=== PATIENT | male | born 1955 | race Caucasian/White ===

== ENCOUNTER 2019-10-30 10:16 | Outpatient (CLI) | payer BC, SELFPAY ==
[2019-10-30 17:42] LABS: Blood Urea Nitrogen 27 mg/dL (9-20); Calcium 8.8 mg/dL (8.4-10.2); Carbon Dioxide 23 mmol/L (22-30); Chloride 103 mmol/L (98-107); Cholesterol 209 mg/dL (0-200); Estimated Glomerular Filt Rate > 60; Glucose 171 mg/dL (75-110); HDL Direct 36 mg/dL; Potassium 3.9 mmol/L (3.4-5.0); Sodium 139 mmol/L (137-145); Triglycerides 201 mg/dL (<150)
[2019-10-30 17:53] LABS: LDL Cholesterol Direct 152 mg/dL
[2019-11-02 12:01] LABS: FSH 8.6 mIU/mL (1.6-8.0); LH 4.7 mIU/mL (1.6-15.2); Prolactin 5.2 ng/mL (***)
[2019-11-02 23:42] LABS: Sex Hormone Binding Globulin 18 nmol/L (22-77)
[2019-11-04 17:16] LABS: Estradiol, Ultrasensitive 28 pg/mL (< OR = 29)
[2019-11-04 18:15] LABS: Testosterone Free 37.7 pg/mL (35.0-155.0); Testosterone Total 230 ng/dL (250-1100)
== END 2019-10-30 10:17 | disposition home or self-care (01) ==
PROVIDERS: PCP Family Medicine
DX: E11.65 Type 2 diabetes mellitus with hyperglycemia (principal); Z79.4 Long term (current) use of insulin; N52.9 Male erectile dysfunction, unspecified; Z79.899 Other long term (current) drug therapy
CPT/HCPCS: 36415; 80048; 80061; 82670; 83001; 83002; 84146; 84270; 84402; 84403

== ENCOUNTER 2019-11-08 15:04 | Outpatient (CLI) | payer BC, SELFPAY ==
[2019-11-08 17:42] LABS: Blood Urea Nitrogen 18 mg/dL (9-20); Calcium 9.4 mg/dL (8.4-10.2); Carbon Dioxide 26 mmol/L (22-30); Chloride 100 mmol/L (98-107); Estimated Glomerular Filt Rate > 60; Glucose 133 mg/dL (75-110); Potassium 3.5 mmol/L (3.4-5.0); Sodium 141 mmol/L (137-145)
[2019-11-08 18:13] LABS: Prostate Specific Antigen 1.1 ng/mL (< OR = 4.0)
[2019-11-11 07:22] LABS: C-Peptide 7.44 ng/mL (0.80-3.85)
[2019-11-12 14:25] LABS: Testosterone Free 150.5 pg/mL (35.0-155.0); Testosterone Total 675 ng/dL (250-1100)
== END 2019-11-08 15:05 | disposition home or self-care (01) ==
LOC: ANHBWCLAB 15:06
PROVIDERS: PCP Family Medicine; Visit Provider Family Medicine
DX: Z12.5 Encounter for screening for malignant neoplasm of prostate (principal); R89.9 Unspecified abnormal finding in specimens from other organs, systems and tissues; N52.9 Male erectile dysfunction, unspecified; I10 Essential (primary) hypertension; E78.5 Hyperlipidemia, unspecified; R79.89 Other specified abnormal findings of blood chemistry; Z79.899 Other long term (current) drug therapy; E11.9 Type 2 diabetes mellitus without complications
CPT/HCPCS: 36415; 80048; 84153; 84402; 84403; 84681; G0103

== ENCOUNTER 2019-12-23 19:06 | IRF | payer BC, SELFPAY ==
[2019-12-23 20:11] VITALS: BMI 36.8
[2019-12-23 21:22] LABS: Glucose Point of Care 201 (65-105)
--- NOTE | 2019-12-23 21:28 | ADMGEN ---
This patient, Dilip Thornton, was admitted to [facility] Room 221-02. Patient oriented to hospital policies and general routines including ID bracelet, bed and alarms, visiting hours, pain management, procedures, bathroom and other care routines, personal items, smoking policy, room service/diet, and visiting hours. Valuables list has been completed. Information on how to activate the Rapid Response Team has been discussed. Patient/Family are encouraged to report perceived risks to care and to ask questions if they do not understand what they are told or what they should do.
[2019-12-23 22:00] VITALS: BP 157/73; PULSE 72; RESP 16; TEMP 36.6; O2SAT 95
[2019-12-24 05:23] LABS: Basophils Absolute Auto 0.1 K/mm3 (0.0-0.1); Basophils Percent Auto 0.5 % (0.2-1.2); Eosinophils Absolute Auto 0.3 K/mm3 (0-0.3); Eosinophils Percent Auto 2.9 % (0-4.4); Hematocrit 46.6 % (42.0-52.0); Hemoglobin 15.3 g/dL (14.0-18.0); Immature Granulocyte Absolute 0.03 K/mm3 (0.00-0.031); Immature Granulocyte Percent A 0.3 % (0-0.5); Lymphocytes Absolute Auto 2.21 K/mm3 (0.9-3.2); Lymphocytes Percent Auto 20.8 % (18.3-44.2); Mean Corpuscular HGB Conc 32.8 g/dl (32-36); Mean Corpuscular Volume 88.4 fl (80-100); Mean Platelet Volume 10.3 fl (7.4-10.4); Monocytes Absolute Auto 0.6 K/mm3 (0.1-0.6); Monocytes Percent Auto 5.8 % (2.6-8.5); Neutrophils Absolute Auto 7.4 K/mm3 (1.3-6.7); Neutrophils Percent Auto 69.7 % (45.5-73.1); Platelet Count Result 227 k/mm3 (150-375); Red Blood Count 5.27 M/mm3 (4.6-6.20); Red Cell Distribution Width 13.5 % (11.5-14.5); White Blood Count 10.6 K/mm3 (4.5-10.0)
[2019-12-24 05:31] LABS: Hemoglobin A1C 7.3 % (<5.7)
[2019-12-24 06:00] VITALS: BP 135/72; PULSE 75; RESP 16; TEMP 36.7; O2SAT 99
[2019-12-24 06:58] LABS: Blood Urea Nitrogen 19 mg/dL (9-20); Calcium 9.3 mg/dL (8.4-10.2); Carbon Dioxide 26 mmol/L (22-30); Chloride 105 mmol/L (98-107); Cholesterol 142 mg/dL (0-200); Estimated CRCL calculation 119 ml/min; Estimated Glomerular Filt Rate > 60; Glucose 223 mg/dL (75-110); HDL Direct 30 mg/dL; Potassium 3.8 mmol/L (3.4-5.0); Sodium 137 mmol/L (137-145); Triglycerides 151 mg/dL (<150)
[2019-12-24 07:08] LABS: LDL Cholesterol Direct 83 mg/dL
--- NOTE | 2019-12-24 09:30 | WPDREHABHP ---
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 The patient is a 64-year- old left-handed patient with a past medical history of gastroesophageal reflux disease, hypertension, hyperlipidemia, type 2 diabetes mellitus and untreated sleep apnea presented to [facility] on December 19, 2019 complaining of unsteady gait, right arm and leg tingling and diaphoresis. He woke up at around 4:30 a.m. and was unable to walk straight in the car door of his home and reported difficulty speaking complete sentences. Neurology was consulted and continue the patient on his previously prescribed atorvastatin and initially increase aspirin from 81 to 325 milligram daily but later decided to decrease aspirin back to 81 and added Plavix [address] of the brain showed no acute intracranial process. Carotid ultrasound showed no high-grade stenosis. Echo was unremarkable. MRI of the brain demonstrated an acute left pontine infarction present is hypertensive urgency has resolved and he is on oral antihypertensive medication. Patient is on 2 liter nasal cannula at night for obstructive sleep apnea as he is unable to tolerate CPAP mask due to claustrophobia. Physical examination continues to reveal right-sided weakness balance impairment and decreased gross motor control and decrease safety awareness. He passed his swallowing study and is on a regular consistency diet and thin liquids The patient has not traveled outside the [place] or had contact with someone who was ill and has traveled outside the [place] in the past 21 days. The patient has not had close personal contact with the person or traveled to an area of the [place] that is experiencing no new transmission of the levi virus. The patient does not have a fever. The patient does not have lower extra respiratory illness symptoms. Therapy was initiated at the acute care facility and the patient transferred to us from [facility] on December 23, 2019 FALLS OR SURGERIES: The patient has had no major surgeries in the 100 days prior to admission. They had no falls in the past year. They had no falls with injury in the past year. PAST MEDICAL HISTORY: diabetes mellitus, maximum, gastroesophageal reflux disease, Brandon dental disease, hyperlipidemia, hypertension, lipoma, ulnar entrapment right upper extremity. PAST SURGICAL HISTORY: Appendectomy, carpal tunnel release twice, knee arthroscopy, lipoma excision, alert release, tonsillectomy, hernia repair. SOCIAL HISTORY: The patient lives independently in a 1 level home with 2 steps to enter. The patient was completely independent prior without any assistive device. The patient was able to drive. He does not have support at home so he needs to be independent. He reported no falls in the past 6 months. He reported no surgeries. Former smoker no alcohol drug use FAMILY HISTORY: mother with hypertension and thyroid disease. Father with coronary disease and hypertension. Brother with a fatty tumor sister with coronary disease and thyroid disease PRIOR LEVEL OF FUNCTION: Eating was INDEPENDENT Oral Care was INDEPENDENT Toileting Hygiene was INDEPENDENT Shower/Bathing was INDEPENDENT Upper Body Dressing was INDEPENDENT Lower Body Dressing was INDEPENDENT Donning/[place] Footwear was INDEPENDENT Rolling Left and Right was INDEPENDENT Sit to Lying was INDEPENDENT Lying to Sitting was INDEPENDENT Sit to Stand was INDEPENDENT Bed to Chair Transfers was INDEPENDENT Toilet Transfers was INDEPENDENT Walking was INDEPENDENT 999 feet with NO DEVICE Wheelchair Mobility was NOT APPLICABLE PRIOR TO ADMISSION Stairs were INDEPENDENT CURRENT LEVEL OF FUNCTION:
[2019-12-24] MEDS: INSULIN HUMAN NPH (*BKC) 100 UNITS/ML 10 UNITS SUB-Q ×2 (10:54→18:37)
[2019-12-24] MEDS: AMLODIPINE BESYLATE 5 MG TABLET 10 MG PO (10:54)
[2019-12-24] MEDS: ASPIRIN 81 MG ENTERIC TABLET PO (10:54)
[2019-12-24] MEDS: ATORVASTATIN 40 MG TABLET PO (10:55)
[2019-12-24] MEDS: CHOLECALCIFEROL 1,000 UNIT TABLET 2000 UNITS PO (10:55)
[2019-12-24] MEDS: GABAPENTIN 300 MG CAPSULE PO (10:55)
[2019-12-24] MEDS: CLOPIDOGREL BISULFATE 75 MG TABLET PO (10:55)
[2019-12-24 10:56] VITALS: PULSE 72
[2019-12-24] MEDS: GLIMEPIRIDE 2 MG TABLET 4 MG PO (10:56)
[2019-12-24] MEDS: METOPROLOL SUCCINATE EXT REL 50 MG TABCR PO (10:56)
[2019-12-24] MEDS: hydroCHLOROthiazide 25 MG TABLET PO (10:56)
[2019-12-24] MEDS: LOSARTAN POTASSIUM 100 MG TABLET PO (10:56)
[2019-12-24] MEDS: OPTI-GEN TAB 1 TABLET PO (10:57)
[2019-12-24 11:57] LABS: Glucose Point of Care 214 (65-105)
--- NOTE | 2019-12-24 12:23 | PCSTNOTE ---
Please refer to the Bedside Swallow Evaluation in the EMR. Please note, silent aspiration cannot be ruled out at bedside.
[2019-12-24 14:00] VITALS: BP 163/81; PULSE 88; RESP 20; TEMP 37.1; O2SAT 98
[2019-12-24 14:04] VITALS: BMI 36.8
[2019-12-24 17:37] LABS: Glucose Point of Care 252 (65-105)
[2019-12-24 20:30] VITALS: PULSE 79; RESP 18; O2SAT 95
[2019-12-24 20:53] LABS: Glucose Point of Care 248 (65-105)
[2019-12-24 22:00] VITALS: BP 155/74; PULSE 79; RESP 18; TEMP 36.8; O2SAT 95
[2019-12-25 06:00] VITALS: BP 160/80; PULSE 68; RESP 18; TEMP 36.7; O2SAT 97
[2019-12-25 07:06] LABS: Glucose Point of Care 217 (65-105)
[2019-12-25] MEDS: ASPIRIN 81 MG ENTERIC TABLET PO (09:23)
[2019-12-25] MEDS: AMLODIPINE BESYLATE 5 MG TABLET 10 MG PO (09:23)
[2019-12-25] MEDS: CHOLECALCIFEROL 1,000 UNIT TABLET 2000 UNITS PO (09:24)
[2019-12-25] MEDS: ATORVASTATIN 40 MG TABLET PO (09:24)
[2019-12-25] MEDS: CLOPIDOGREL BISULFATE 75 MG TABLET PO (09:24)
[2019-12-25] MEDS: GLIMEPIRIDE 2 MG TABLET 4 MG PO (09:25)
[2019-12-25] MEDS: GABAPENTIN 300 MG CAPSULE PO (09:25)
[2019-12-25] MEDS: hydroCHLOROthiazide 25 MG TABLET PO (09:25)
[2019-12-25 09:26] VITALS: PULSE 68
[2019-12-25] MEDS: OPTI-GEN TAB 1 TABLET PO (09:26)
[2019-12-25] MEDS: METOPROLOL SUCCINATE EXT REL 50 MG TABCR PO (09:26)
[2019-12-25] MEDS: LOSARTAN POTASSIUM 100 MG TABLET PO (09:26)
[2019-12-25] MEDS: INSULIN HUMAN NPH (*BKC) 100 UNITS/ML 10 UNITS SUB-Q ×2 (09:29→18:09)
[2019-12-25 11:59] LABS: Glucose Point of Care 279 (65-105)
--- NOTE | 2019-12-25 13:26 | RPD ---
Addendum entered by Diana Eden 12/25/19 13:36: The patient needs physician monitoring and treatment of hypertension, hypoxia, monitoring for adverse reactions to new medications, monitoring for infection, and pain control. The patient requires nursing services for frequent neuro checks, anticoagulation therapy, medication management and education, pressure relief and skin care management, monitoring of labs, diabetes management and education, and fall/safety precautions. Original Note: INDIVIDUALIZED PLAN OF CARE FOR Carmen Thornton Brief Synthesis of Pre-Admission Screen, Post-Admission Evaluation and Therapy Evaluations: The patient presents to rehab with a left pontine acute infarct. Comorbidities include hypertension, hyperlipidemia, diabetes mellitus type 2 with neuropathy, untreated sleep apnea, aphasia, rightsided weakness with gait instability, and gastroesophageal reflux disease. Deficits include:ADLs, Balance, Endurance, Family Training/Education, Mobility, Pain Management, ROM, Safety, Speech, Strength, and Transfers. [employer]enet Admin/Case Management for: Discharge Planning and Patient/Family Counseling Physical Therapy: 5 days per week for 75 minutes. Treatments may include: Therapeutic Exercise, Gait Training, Neuromuscular Re-education, Transfer Training, Community Reintegration, Bed Mobility, Patient/Family Education, Wheelchair Mobility Group Therapy/Concurrent Therapy Rationales: -Improve attention span during functional activities in a distracted environment. -Enhance problem solving and/or adequate judgment skills during functional activities in a distracted environment. -Promote increased safety awareness in a distracted environment to reduce fall risk with functional tasks, transfers, and ambulation to allow a more safe, self-sufficient return to the home environment. -Improve dynamic balance skills to promote safety and independence with functional activities in a distracted environment for maximum gain. Occupational Therapy: 5 days per week for 75 minutes. Treatments may include: Therapeutic Exercise, Therapeutic Activity, Cognitive Training, Self-Care Transfer Training, Community Reintegration, Home Management, Patient/Family Education, Wheelchair Mobility Training, Energy Conservation Training Group Therapy/Concurrent Therapy Rationales: -Allow therapist to observe and teach generalization and carry-over of skills learned in individual therapy. -Enhance problem solving and sequencing skills during therapeutic activities in a distracted environment. -Promote increased safety awareness in a realistic setting to reduce fall risk with functional tasks due to visual and verbal distractions. -Increase functional level with ADLs, ADL transfers and use of adaptive equipment through therapeutic activities with others while promoting safety to allow a more safe, self-sufficient return home. Speech Therapy: 5 days per week for 30 minutes. Treatments may include: Dysphasia Therapy, Speech/Language/Communication Therapy, Cognitive Training, Patient/Family Education Group Therapy/Concurrent Therapy - Rationale: -Allow therapist to observe and teach generalization and carry-over of skills learned in individual therapy. -Improve comprehension skills with complex or abstract ideas through discussion in a realistic setting. -Enhance problem solving skills with complex issues during activities in a distracted environment. -Promote increased memory skills and concentration in a distracted environment for a safe transition home. -Improve attention and focus with language/communication skills in a realistic and supportive therapeutic setting. -Allow for practice of expression of basic needs and ideas through functional activities with others. Medical Prognosis: Good Anticipated Length of Stay: 10 days Rehab Goals: Eating Goal: 05-Setup or Clean Up Assistance Oral Hygiene Goal: 06-Independent Toileting Hygiene Goal: 04-Supervision or Bill
[2019-12-25 14:00] VITALS: BP 136/68; PULSE 74; RESP 20; TEMP 36.2; O2SAT 97
--- NOTE | 2019-12-25 14:26 | WPDNEURORHBP ---
Subjective Date/time seen: 12/25/19 14:26 Interval history: this 64-year-old gentleman is here with the left pontine stroke with significant moderately severe right-sided hemiparesis with the right arm is almost flaccid and the right leg is relatively better he needs assistance in all the activities of daily living but quite motivated and moving forward without any new neurological symptoms without any headache nausea vomiting double vision blurred vision or new weakness no chest pain no shortness of breath abdominal pain Review of Systems Review of Systems: All systems reviewed & are unremarkable except as noted in HPI and below Functional Status Ambulation Ability Ability to Ambulate 10 Feet: Moderate Assistance X 1 Ability to Ambulate 50 Feet With 2 Turns: Moderate Assistance X 1 Ambulation Assistive Devices: Cane, Eric Transfers Ability Ability to Transfer In/Out of Chair: Moderate Assistance X 1 Exam Const: General: comfortable and no acute distress HENMT: General nose exam: Normal nares present Mouth: Yes moist mucous membranes Eyes: General: appearance normal, both eyes and all related structures Neck: Neck: supple and no JVD Resp: Effort & Inspection: normal respiratory effort Auscultation: clear to auscultation bilaterally Cardio: Rate: regular rate Rhythm: regular rhythm GI: GI Palp: Yes Soft to palpation Auscultation: normal bowel sounds Skin: General skin exam: normal color and no rashes or lesions noted Neuro: Other: patient is awake alert and oriented times place person has a mild dysarthria due to brainstem stroke right-sided facial weakness moderately severe right-sided hemiparesis needing assistance in the all the activities of daily Psych: Mental Status: mental status grossly normal Objective Data Vital Signs Vital Signs: Vital Signs - 24 hr 12/24/19 20:30 12/24/19 22:00 12/25/19 06:00 Temperature 36.8 C 36.7 C Pulse Rate 79 79 68 Respiratory Rate 18 18 18 Blood Pressure 155/74 H 160/80 H Pulse Oximetry 95 95 97 12/25/19 09:26 Temperature Pulse Rate 68 Respiratory Rate Blood Pressure Pulse Oximetry Intake/Output Intake/Output: Intake & Output 12/22/19 12/23/19 12/24/19 12/25/19 23:59 23:59 23:59 23:59 Intake Total 480 600 Balance 480 600 Meds/Results Medications: Active Medications Generic Name Dose Route Start Last Admin Trade Name Freq PRN Reason Stop Dose Admin Acetaminophen 650 mg 12/24/19 00:03 Tylenol Tablet PO Q4H PRN Pain Rated 1-3 Amlodipine Besylate 10 mg 12/24/19 09:00 12/25/19 09:23 Norvasc PO 10 mg DAILY BRITTANY Administration Aspirin 81 mg 12/24/19 09:00 12/25/19 09:23 Aspirin Ec PO 81 mg DAILY BRITTANY Administration Atorvastatin Calcium 40 mg 12/24/19 09:00 12/25/19 09:24 Lipitor PO 40 mg DAILY BRITTANY Administration Clopidogrel Bisulfate 75 mg 12/24/19 09:00 12/25/19 09:24 Plavix PO 75 mg DAILY BRITTANY Administration Diphenoxylate HCl/Atropine 1 tablet 12/25/19 09:00 12/25/19 12:45 Lomotil Tab 2.5 Mg PO 1 tablet Q48H BRITTANY Administration Gabapentin 300 mg 12/24/19 00:03 Neurontin PO BID PRN Muscle Spasticity Gabapentin 300 mg 12/24/19 09:00 12/25/19 09:25 Neurontin PO 300 mg DAILY BRITTANY Administration Glimepiride 4 mg 12/24/19 09:00 12/25/19 09:25 Amaryl PO 01/23/20 09:01 4 mg QAM BRITTANY Administration Hydrochlorothiazide 25 mg 12/24/19 09:00 12/25/19 09:25 Hydrochlorothiazide PO 25 mg DAILY BRITTANY Administration Insulin Human NPH 10 units 12/24/19 08:00 12/25/19 09:29 SUB-Q 10 units BIDWM BRITTANY Administration Losartan Potassium 100 mg 12/24/19 09:00 12/25/19 09:26 Cozaar PO 100 mg DAILY BRITTANY Administration Metoprolol Succinate 50 mg 12/24/19 09:00 12/25/19 09:26 Toprol Xl PO 50 mg DAILY BRITTANY Administration Multivitamins/Minerals 1 tablet 12/24/19 09:00 12/25/19 09:26 Ocuvite PO 1 table
[2019-12-25 17:00] LABS: Glucose Point of Care 209 (65-105)
[2019-12-25 21:58] LABS: Glucose Point of Care 304 (65-105)
[2019-12-25 22:00] VITALS: BP 134/61; PULSE 65; RESP 18; TEMP 36.4; O2SAT 98
[2019-12-26 06:00] VITALS: BP 132/60; PULSE 68; RESP 19; TEMP 36.4; O2SAT 98
[2019-12-26 07:23] LABS: Glucose Point of Care 171 (65-105)
[2019-12-26] MEDS: ACETAMINOPHEN 325 MG TABLET 650 MG PO ×2 (07:26→21:21)
[2019-12-26 08:00] VITALS: PULSE 75; RESP 20; O2SAT 98
--- NOTE | 2019-12-26 08:17 | PCPTNOTE ---
Carmen Thornton was evaluated for a azael cane on 12/26/2019 by this physical therapist occupational therapy assistant. The azael cane will resolve patient's mobility limitations and will be used for ADL's within the home. The patient can safely use the azael cane. ?The azael cane will resolve the patient?s mobility deficits, including decreased right sided strength, decreased balance and decreased endurance.
[2019-12-26] MEDS: INSULIN HUMAN NPH (*BKC) 100 UNITS/ML 10 UNITS SUB-Q ×2 (10:07→18:28)
[2019-12-26] MEDS: ASPIRIN 81 MG ENTERIC TABLET PO (10:09)
[2019-12-26] MEDS: AMLODIPINE BESYLATE 5 MG TABLET 10 MG PO (10:09)
[2019-12-26] MEDS: CHOLECALCIFEROL 1,000 UNIT TABLET 2000 UNITS PO (10:10)
[2019-12-26] MEDS: GLIMEPIRIDE 2 MG TABLET 4 MG PO (10:10)
[2019-12-26] MEDS: GABAPENTIN 300 MG CAPSULE PO (10:10)
[2019-12-26] MEDS: ATORVASTATIN 40 MG TABLET PO (10:10)
[2019-12-26] MEDS: CLOPIDOGREL BISULFATE 75 MG TABLET PO (10:10)
[2019-12-26 10:11] VITALS: PULSE 68
[2019-12-26] MEDS: LOSARTAN POTASSIUM 100 MG TABLET PO (10:11)
[2019-12-26] MEDS: hydroCHLOROthiazide 25 MG TABLET PO (10:11)
[2019-12-26] MEDS: METOPROLOL SUCCINATE EXT REL 50 MG TABCR PO (10:11)
[2019-12-26] MEDS: OPTI-GEN TAB 1 TABLET PO (10:12)
[2019-12-26 11:52] LABS: Glucose Point of Care 137 (65-105)
--- NOTE | 2019-12-26 12:38 | WPDNEURORHBP ---
Subjective Date/time seen: 12/26/19 12:38 Interval history: this 64-year-old diabetic gentleman is here is status post brainstem stroke which has left him with significant and severe right-sided hemiparesis with the preserved swallowing vision and hearing he denies any worsening overall particularly denies any fever chills sore throat headache nausea vomiting the sugars are relatively better controlled Review of Systems Review of Systems: All systems reviewed & are unremarkable except as noted in HPI and below Functional Status Ambulation Ability Ability to Ambulate 10 Feet: Moderate Assistance X 1 Ability to Ambulate 50 Feet With 2 Turns: Moderate Assistance X 1 Ambulation Assistive Devices: Cane, Eric Transfers Ability Ability to Transfer In/Out of Chair: Moderate Assistance X 1 Exam Const: General: comfortable and no acute distress HENMT: General nose exam: Normal nares present Mouth: Yes moist mucous membranes Eyes: General: appearance normal, both eyes and all related structures Neck: Neck: supple and no JVD Resp: Effort & Inspection: normal respiratory effort Auscultation: clear to auscultation bilaterally Cardio: Rate: regular rate Rhythm: regular rhythm GI: GI Palp: Yes Soft to palpation Auscultation: normal bowel sounds Skin: General skin exam: normal color and no rashes or lesions noted Neuro: Other: patient's mental status is normal cranial examination shows subtle right-sided facial weakness motor examination reveals significant and the moderately severe right-sided hemiparesis with brisk reflexes upgoing Babinski along with the evidence of peripheral neuropathy any ability inability to perform the activities of daily living but quite motivated and ready to continue with the therapy aggressive Extrem: General: normal to inspection Psych: Mental Status: mental status grossly normal Objective Data Vital Signs Vital Signs: Vital Signs - 24 hr 12/25/19 14:00 12/25/19 22:00 12/26/19 06:00 Temperature 36.2 C L 36.4 C L 36.4 C Pulse Rate 74 65 68 Respiratory Rate 20 18 19 Blood Pressure 136/68 134/61 132/60 Pulse Oximetry 97 98 98 12/26/19 10:11 Temperature Pulse Rate 68 Respiratory Rate Blood Pressure Pulse Oximetry Intake/Output Intake/Output: Intake & Output 12/23/19 12/24/19 12/25/19 12/26/19 23:59 23:59 23:59 23:59 Intake Total 480 840 240 Balance 480 840 240 Meds/Results Medications: Active Medications Generic Name Dose Route Start Last Admin Trade Name Freq PRN Reason Stop Dose Admin Acetaminophen 650 mg 12/24/19 00:03 12/26/19 07:26 Tylenol Tablet PO 650 mg Q4H PRN Administration Pain Rated 1-3 Amlodipine Besylate 10 mg 12/24/19 09:00 12/26/19 10:09 Norvasc PO 10 mg DAILY BRITTANY Administration Aspirin 81 mg 12/24/19 09:00 12/26/19 10:09 Aspirin Ec PO 81 mg DAILY BRITTANY Administration Atorvastatin Calcium 40 mg 12/24/19 09:00 12/26/19 10:10 Lipitor PO 40 mg DAILY BRITTANY Administration Clopidogrel Bisulfate 75 mg 12/24/19 09:00 12/26/19 10:10 Plavix PO 75 mg DAILY BRITTANY Administration Dextrose 12.5 gm 12/25/19 17:16 Dextrose 50% Syringe IV PUSH PRN PRN Hypoglycemia Protocol Diphenoxylate HCl/Atropine 1 tablet 12/25/19 09:00 12/25/19 12:45 Lomotil Tab 2.5 Mg PO 1 tablet Q48H BRITTANY Administration Gabapentin 300 mg 12/24/19 00:03 Neurontin PO BID PRN Muscle Spasticity Gabapentin 300 mg 12/24/19 09:00 12/26/19 10:10 Neurontin PO 300 mg DAILY BRITTANY Administration Glimepiride 4 mg 12/24/19 09:00 12/26/19 10:10 Amaryl PO 01/23/20 09:01 4 mg QAM BRITTANY Administration Glucagon 1 mg 12/25/19 17:16 Glucagon For Inj IM PRN PRN Hypoglycemia Protocol Glucose 15 gm 12/25/19 17:16 Glutose 15 PO PRN PRN Hypoglycemia Protocol Hydrochlorothiazide 25 mg 12/24/19 09:00 12/26/19 10:11 Hydrochlorothiazide
[2019-12-26 14:00] VITALS: BP 161/86; PULSE 75; RESP 20; TEMP 36.3; O2SAT 98
[2019-12-26 17:49] LABS: Glucose Point of Care 233 (65-105)
[2019-12-26 20:52] LABS: Glucose Point of Care 194 (65-105)
[2019-12-26 21:39] VITALS: PULSE 75; RESP 20; O2SAT 98
[2019-12-26 22:00] VITALS: BP 150/80; PULSE 66; RESP 20; TEMP 36.3; O2SAT 100
[2019-12-27] MEDS: ACETAMINOPHEN 325 MG TABLET 650 MG PO (05:35)
[2019-12-27 05:48] LABS: Glucose Point of Care 138 (65-105)
[2019-12-27 06:00] VITALS: BP 135/69; PULSE 70; RESP 20; TEMP 36.7; O2SAT 96
[2019-12-27] MEDS: AMLODIPINE BESYLATE 5 MG TABLET 10 MG PO (09:45)
[2019-12-27] MEDS: INSULIN HUMAN NPH (*BKC) 100 UNITS/ML 10 UNITS SUB-Q ×2 (09:46→17:04)
[2019-12-27] MEDS: ASPIRIN 81 MG ENTERIC TABLET PO (09:47)
[2019-12-27] MEDS: ATORVASTATIN 40 MG TABLET PO (09:47)
[2019-12-27] MEDS: GLIMEPIRIDE 2 MG TABLET 4 MG PO (09:47)
[2019-12-27] MEDS: OPTI-GEN TAB 1 TABLET PO (09:47)
[2019-12-27] MEDS: GABAPENTIN 300 MG CAPSULE PO (09:47)
[2019-12-27] MEDS: hydroCHLOROthiazide 25 MG TABLET PO (09:48)
[2019-12-27] MEDS: CHOLECALCIFEROL 1,000 UNIT TABLET 2000 UNITS PO (09:48)
[2019-12-27 09:49] VITALS: PULSE 88
[2019-12-27] MEDS: LOSARTAN POTASSIUM 100 MG TABLET PO (09:49)
[2019-12-27] MEDS: CLOPIDOGREL BISULFATE 75 MG TABLET PO (09:49)
[2019-12-27] MEDS: METOPROLOL SUCCINATE EXT REL 50 MG TABCR PO (09:49)
--- NOTE | 2019-12-27 10:39 | PCDIET ---
Nutrition Follow-Up Complete: Nutrition Diagnosis: Decreased saturated fat/sodium needs related to cardiovascular disease as evidenced by hx high cholesterol, HTN and recent CVA. Nutrition Goal: Patient to consume 75% of meals or greater. Goal met. Patient consuming 100% of most meals on diabetic diet. Reports good appetite and denies c/o. Recommend adding heart healthy diet. Discussed importance of CVA risk reduction MNT with patient this date. See Teach: Stroke Prevention note for additional details. Last recorded weight is 130 kg. Recommend obtaining new weight. Bowel Motility: No documented BM. Patient does not c/o of any GI issues. Labs Reviewed: Glu (138) Meds Noted: Lomotil, Hydrochlorothiazide, Ocuvite, Amaryl, Insulin NPH, Vitamin D Additional Notes: No documented skin breakdown. Will continue to monitor with same goal. Nutrition Monitoring and Evaluation: Follow up every 7 days.
[2019-12-27 11:53] LABS: Glucose Point of Care 156 (65-105)
--- NOTE | 2019-12-27 12:17 | WPDNEURORHBP ---
Subjective Date/time seen: 12/27/19 12:17 Interval history: this 64-year-old patient is here after having had a brainstem stroke which has left him almost pure motor weakness of the right side he denies any new symptoms he is receiving the electrical stimulation to the right upper extremity and stable happy with the care denies any headache nausea vomiting chest pain shortness of breath fever chills or sore throat Review of Systems Review of Systems: All systems reviewed & are unremarkable except as noted in HPI and below Functional Status Ambulation Ability Ability to Ambulate 10 Feet: Minimum Assistance X 1 Ability to Ambulate 50 Feet With 2 Turns: Moderate Assistance X 1 Ambulation Assistive Devices: Cane, Eric Transfers Ability Ability to Transfer In/Out of Chair: Moderate Assistance X 1 Exam Const: General: comfortable and no acute distress HENMT: General nose exam: Normal nares present Mouth: Yes moist mucous membranes Eyes: General: appearance normal, both eyes and all related structures Neck: Neck: supple and no JVD Resp: Effort & Inspection: normal respiratory effort Auscultation: clear to auscultation bilaterally Cardio: Rate: regular rate Rhythm: regular rhythm GI: GI Palp: Yes Soft to palpation Auscultation: normal bowel sounds Skin: General skin exam: normal color and no rashes or lesions noted Neuro: Other: patient's mental status examination normal cranial examination revealed right-sided facial weakness and moderately severe right-sided hemiparesis with brisk reflexes positive Babinski and significant time performing the activities of daily living due to the nature of the stroke Extrem: General: normal to inspection Psych: Mental Status: mental status grossly normal Objective Data Vital Signs Vital Signs: Vital Signs - 24 hr 12/26/19 14:00 12/26/19 21:39 12/26/19 22:00 Temperature 36.3 C L 36.3 C L Pulse Rate 75 75 66 Respiratory Rate 20 20 20 Blood Pressure 161/86 H 150/80 H Pulse Oximetry 98 98 100 12/27/19 06:00 12/27/19 09:49 Temperature 36.7 C Pulse Rate 70 88 Respiratory Rate 20 Blood Pressure 135/69 Pulse Oximetry 96 Intake/Output Intake/Output: Intake & Output 12/24/19 12/25/19 12/26/19 12/27/19 23:59 23:59 23:59 23:59 Intake Total 480 840 720 240 Balance 480 840 720 240 Meds/Results Medications: Active Medications Generic Name Dose Route Start Last Admin Trade Name Freq PRN Reason Stop Dose Admin Acetaminophen 650 mg 12/24/19 00:03 12/27/19 05:35 Tylenol Tablet PO 650 mg Q4H PRN Administration Pain Rated 1-3 Amlodipine Besylate 10 mg 12/24/19 09:00 12/27/19 09:45 Norvasc PO 10 mg DAILY BRITTANY Administration Aspirin 81 mg 12/24/19 09:00 12/27/19 09:47 Aspirin Ec PO 81 mg DAILY BRITTANY Administration Atorvastatin Calcium 40 mg 12/24/19 09:00 12/27/19 09:47 Lipitor PO 40 mg DAILY BRITTANY Administration Clopidogrel Bisulfate 75 mg 12/24/19 09:00 12/27/19 09:49 Plavix PO 75 mg DAILY BRITTANY Administration Dextrose 12.5 gm 12/25/19 17:16 Dextrose 50% Syringe IV PUSH PRN PRN Hypoglycemia Protocol Diphenoxylate HCl/Atropine 1 tablet 12/25/19 09:00 12/27/19 09:50 Lomotil Tab 2.5 Mg PO 1 tablet Q48H BRITTANY Administration Gabapentin 300 mg 12/24/19 00:03 Neurontin PO BID PRN Muscle Spasticity Gabapentin 300 mg 12/24/19 09:00 12/27/19 09:47 Neurontin PO 300 mg DAILY BRITTANY Administration Glimepiride 4 mg 12/24/19 09:00 12/27/19 09:47 Amaryl PO 01/23/20 09:01 4 mg QAM BRITTANY Administration Glucagon 1 mg 12/25/19 17:16 Glucagon For Inj IM PRN PRN Hypoglycemia Protocol Glucose 15 gm 12/25/19 17:16 Glutose 15 PO PRN PRN Hypoglycemia Protocol Hydrochlorothiazide 25 mg 12/24/19 09:00 12/27/19 09:48 Hydrochlorothiazide PO 25 mg DAILY BRITTANY Administration Dextrose 1,000 mls @ 100 mls/h
[2019-12-27 14:00] VITALS: BP 126/68; PULSE 74; RESP 18; TEMP 36.2; O2SAT 99
[2019-12-27 16:57] LABS: Glucose Point of Care 153 (65-105)
[2019-12-27 20:47] LABS: Glucose Point of Care 150 (65-105)
[2019-12-27 22:00] VITALS: BP 136/66; PULSE 70; RESP 18; TEMP 36.6; O2SAT 97
[2019-12-28 06:00] VITALS: BP 138/66; PULSE 66; RESP 18; TEMP 36.6; O2SAT 98
[2019-12-28 07:06] LABS: Glucose Point of Care 154 (65-105)
[2019-12-28] MEDS: ASPIRIN 81 MG ENTERIC TABLET PO (09:46)
[2019-12-28] MEDS: INSULIN HUMAN NPH (*BKC) 100 UNITS/ML 10 UNITS SUB-Q ×2 (09:46→17:22)
[2019-12-28] MEDS: ATORVASTATIN 40 MG TABLET PO (09:46)
[2019-12-28] MEDS: AMLODIPINE BESYLATE 5 MG TABLET 10 MG PO (09:46)
[2019-12-28] MEDS: CHOLECALCIFEROL 1,000 UNIT TABLET 2000 UNITS PO (09:46)
[2019-12-28] MEDS: GLIMEPIRIDE 2 MG TABLET 4 MG PO (09:46)
[2019-12-28] MEDS: GABAPENTIN 300 MG CAPSULE PO (09:47)
[2019-12-28] MEDS: CLOPIDOGREL BISULFATE 75 MG TABLET PO (09:47)
[2019-12-28] MEDS: hydroCHLOROthiazide 25 MG TABLET PO (09:47)
[2019-12-28 09:48] VITALS: PULSE 66
[2019-12-28] MEDS: OPTI-GEN TAB 1 TABLET PO (09:48)
[2019-12-28] MEDS: METOPROLOL SUCCINATE EXT REL 50 MG TABCR PO (09:48)
[2019-12-28] MEDS: LOSARTAN POTASSIUM 100 MG TABLET PO (09:48)
[2019-12-28 12:05] LABS: Glucose Point of Care 134 (65-105)
[2019-12-28 14:00] VITALS: BP 141/73; PULSE 86; RESP 20; TEMP 36.5; O2SAT 99
[2019-12-28 17:26] LABS: Glucose Point of Care 165 (65-105)
[2019-12-28] MEDS: ACETAMINOPHEN 325 MG TABLET 650 MG PO (19:04)
[2019-12-28 21:24] LABS: Glucose Point of Care 194 (65-105)
[2019-12-28 22:00] VITALS: BP 137/64; PULSE 64; RESP 18; TEMP 36.4; O2SAT 96
[2019-12-29] MEDS: ACETAMINOPHEN 325 MG TABLET 650 MG PO ×2 (02:50→18:23)
[2019-12-29 06:00] VITALS: BP 136/77; PULSE 73; RESP 19; TEMP 36.7; O2SAT 97
[2019-12-29 07:24] LABS: Glucose Point of Care 178 (65-105)
[2019-12-29] MEDS: ASPIRIN 81 MG ENTERIC TABLET PO (09:02)
[2019-12-29] MEDS: ATORVASTATIN 40 MG TABLET PO (09:02)
[2019-12-29] MEDS: AMLODIPINE BESYLATE 5 MG TABLET 10 MG PO (09:02)
[2019-12-29] MEDS: GABAPENTIN 300 MG CAPSULE PO (09:03)
[2019-12-29] MEDS: CHOLECALCIFEROL 1,000 UNIT TABLET 2000 UNITS PO (09:03)
[2019-12-29] MEDS: CLOPIDOGREL BISULFATE 75 MG TABLET PO (09:03)
[2019-12-29] MEDS: LOSARTAN POTASSIUM 100 MG TABLET PO (09:04)
[2019-12-29] MEDS: GLIMEPIRIDE 2 MG TABLET 4 MG PO (09:04)
[2019-12-29] MEDS: OPTI-GEN TAB 1 TABLET PO (09:04)
[2019-12-29] MEDS: hydroCHLOROthiazide 25 MG TABLET PO (09:04)
[2019-12-29 09:10] VITALS: PULSE 73
[2019-12-29] MEDS: METOPROLOL SUCCINATE EXT REL 50 MG TABCR PO (09:10)
[2019-12-29] MEDS: INSULIN HUMAN NPH (*BKC) 100 UNITS/ML 10 UNITS SUB-Q ×2 (09:10→18:13)
[2019-12-29 11:51] LABS: Glucose Point of Care 147 (65-105)
[2019-12-29 14:00] VITALS: BP 130/79; PULSE 80; RESP 17; TEMP 36.4; O2SAT 95
--- NOTE | 2019-12-29 16:15 | WPDNEURORHBP ---
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 This is a little improvement however quite encouraging he denies any further symptoms leading to neurological system particularly denies any headache nausea vomiting double vision blurred vision difficulty swallowing on and from the medical standpoint no chest pain no shortness of breath no fever chills sore throat Review of Systems Review of Systems: All systems reviewed & are unremarkable except as noted in HPI and below Functional Status Ambulation Ability Ability to Ambulate 10 Feet: Minimum Assistance X 1 Ability to Ambulate 50 Feet With 2 Turns: Minimum Assistance X 1 Ability to Ambulate 150 Feet: Moderate Assistance X 1 Ambulation Assistive Devices: Cane, Eric Transfers Ability Ability to Transfer In/Out of Chair: Moderate Assistance X 1 Exam Const: General: comfortable and no acute distress HENMT: General nose exam: Normal nares present Mouth: Yes moist mucous membranes Eyes: General: appearance normal, both eyes and all related structures Neck: Neck: no JVD Resp: Effort & Inspection: normal respiratory effort Auscultation: clear to auscultation bilaterally Cardio: Rate: regular rate Rhythm: regular rhythm GI: GI Palp: Yes Soft to palpation Auscultation: normal bowel sounds Skin: General skin exam: normal color and no rashes or lesions noted Neuro: Other: patient remains awake and alert well oriented in time present person has normal speech and language function very subtle right facial weakness and improving right-sided hemiparesis Extrem: General: normal to inspection Psych: Mental Status: mental status grossly normal Objective Data Vital Signs Vital Signs: Vital Signs - 24 hr 12/28/19 22:00 12/29/19 06:00 12/29/19 09:10 Temperature 36.4 C L 36.7 C Pulse Rate 64 73 73 Respiratory Rate 18 19 Blood Pressure 137/64 136/77 Pulse Oximetry 96 97 12/29/19 14:00 Temperature 36.4 C L Pulse Rate 80 Respiratory Rate 17 Blood Pressure 130/79 Pulse Oximetry 95 Intake/Output Intake/Output: Intake & Output 12/26/19 12/27/19 12/28/19 12/29/19 23:59 23:59 23:59 23:59 Intake Total 720 720 840 480 Balance 720 720 840 480 Meds/Results Medications: Active Medications Generic Name Dose Route Start Last Admin Trade Name Freq PRN Reason Stop Dose Admin Acetaminophen 650 mg 12/24/19 00:03 12/29/19 02:50 Tylenol Tablet PO 650 mg Q4H PRN Administration Pain Rated 1-3 Amlodipine Besylate 10 mg 12/24/19 09:00 12/29/19 09:02 Norvasc PO 10 mg DAILY [facility] Administration Aspirin 81 mg 12/24/19 09:00 12/29/19 09:02 Aspirin Ec PO 81 mg DAILY [facility] Administration Atorvastatin Calcium 40 mg 12/24/19 09:00 12/29/19 09:02 Lipitor PO 40 mg DAILY [facility] Administration Clopidogrel Bisulfate 75 mg 12/24/19 09:00 12/29/19 09:03 Plavix PO 75 mg DAILY [facility] Administration Dextrose 12.5 gm 12/25/19 17:16 Dextrose 50% Syringe IV PUSH PRN PRN Hypoglycemia Protocol Diphenoxylate HCl/Atropine 1 tablet 12/25/19 09:00 12/29/19 09:10 Lomotil Tab 2.5 Mg PO 1 tablet Q48H [facility] Administration Gabapentin 300 mg 12/24/19 00:03 Neurontin PO BID PRN Muscle Spasticity Gabapentin 300 mg 12/24/19 09:00 12/29/19 09:03 Neurontin PO 300 mg DAILY [facility] Administration Glimepiride 4 mg 12/24/19 09:00 12/29/19 09:04 Amaryl PO 01/23/20 09:01 4 mg QAM [facility] Administration Glucagon 1 mg 12/25/19 17:16 Glucagon For Inj IM PRN PRN Hypoglycemia Protocol Glucose 15 gm 12/25/19 17:16 Glutose 15 PO
[2019-12-29 17:15] LABS: Glucose Point of Care 132 (65-105)
[2019-12-29 20:09] VITALS: PULSE 75; O2SAT 98
[2019-12-29 21:05] VITALS: BP 125/81; PULSE 64; RESP 20; TEMP 36.1; O2SAT 97
[2019-12-30 06:00] VITALS: BP 146/76; PULSE 69; RESP 20; TEMP 36.6; O2SAT 97
[2019-12-30 06:50] LABS: Glucose Point of Care 159 (65-105)
[2019-12-30] MEDS: INSULIN HUMAN NPH (*BKC) 100 UNITS/ML 10 UNITS SUB-Q ×2 (09:06→17:29)
[2019-12-30] MEDS: CHOLECALCIFEROL 1,000 UNIT TABLET 2000 UNITS PO (09:07)
[2019-12-30] MEDS: AMLODIPINE BESYLATE 5 MG TABLET 10 MG PO (09:07)
[2019-12-30] MEDS: ASPIRIN 81 MG ENTERIC TABLET PO (09:07)
[2019-12-30] MEDS: CLOPIDOGREL BISULFATE 75 MG TABLET PO (09:07)
[2019-12-30] MEDS: ATORVASTATIN 40 MG TABLET PO (09:07)
[2019-12-30 09:08] VITALS: PULSE 69
[2019-12-30] MEDS: GLIMEPIRIDE 2 MG TABLET 4 MG PO (09:08)
[2019-12-30] MEDS: hydroCHLOROthiazide 25 MG TABLET PO (09:08)
[2019-12-30] MEDS: GABAPENTIN 300 MG CAPSULE PO (09:08)
[2019-12-30] MEDS: METOPROLOL SUCCINATE EXT REL 50 MG TABCR PO (09:08)
[2019-12-30] MEDS: LOSARTAN POTASSIUM 100 MG TABLET PO (09:08)
[2019-12-30] MEDS: OPTI-GEN TAB 1 TABLET PO (09:09)
[2019-12-30 11:57] LABS: Glucose Point of Care 135 (65-105)
--- NOTE | 2019-12-30 12:15 | WPDNEURORHBP ---
Subjective Date/time seen: 12/30/19 12:15 Review of Systems Review of Systems: All systems reviewed & are unremarkable except as noted in HPI and below Functional Status Ambulation Ability Ability to Ambulate 10 Feet: Minimum Assistance X 1 Ability to Ambulate 50 Feet With 2 Turns: Minimum Assistance X 1 Ability to Ambulate 150 Feet: Moderate Assistance X 1 Ambulation Assistive Devices: Cane, Eric Transfers Ability Ability to Transfer In/Out of Chair: Moderate Assistance X 1 Exam Const: General: cooperative, comfortable and no acute distress Eyes: General: appearance normal, both eyes and all related structures Neck: Neck: full ROM and no lymphadenopathy Resp: Effort & Inspection: normal respiratory effort Cardio: Rate: regular rate Rhythm: regular rhythm GI: Auscultation: normal bowel sounds Neuro: General: patient oriented x3, tone normal, moves all extremities and no meningeal signs Cranial nerves: Yes Equal, round and reactive pupils present, Yes Nystagmus not present, Yes Normal facial strength present, Yes Midline tongue present, Yes Symmetric palate elevation present, Yes Normal hearing present, Yes Ability to bilaterally rotate head present and Yes Ability to bilaterally elevate shoulders present Cognition (Neuro): normal cognition Speech: normal speech Gait exam (Neuro): Normal gait present Motor exam (neuro): Abnormal motor strength present (subtleright eric) Deep tendon reflexes (DTR's): Right triceps reflex intensity grade: 1+, Left triceps reflex intensity grade: 1+, Rt Biceps (C5, C6): 1+, Left biceps reflex intensity grade: 1+, Right brachioradialis reflex intensity grade: 1+, Left brachioradialis reflex intensity grade: 1+, Right patellar reflex intensity grade: 1+, Left patellar reflex intensity grade: 1+, Right ankle reflex intensity grade: 1+ and Left ankle reflex intensity grade: 1+ Plantar Reflex Responses: equivocal: bilateral Psych: Appearance: grossly normal Objective Data Vital Signs Vital Signs: Vital Signs - 24 hr 12/29/19 14:00 12/29/19 20:09 12/29/19 21:05 Temperature 36.4 C L 36.1 C L Pulse Rate 80 75 64 Respiratory Rate 17 20 Blood Pressure 130/79 125/81 Pulse Oximetry 95 98 97 12/30/19 06:00 12/30/19 09:08 Temperature 36.6 C Pulse Rate 69 69 Respiratory Rate 20 Blood Pressure 146/76 H Pulse Oximetry 97 Intake/Output Intake/Output: Intake & Output 12/27/19 12/28/19 12/29/19 12/30/19 23:59 23:59 23:59 23:59 Intake Total 720 840 720 240 Balance 720 840 720 240 Meds/Results Medications: Active Medications Generic Name Dose Route Start Last Admin Trade Name Freq PRN Reason Stop Dose Admin Acetaminophen 650 mg 12/24/19 00:03 12/29/19 18:23 Tylenol Tablet PO 650 mg Q4H PRN Administration Pain Rated 1-3 Amlodipine Besylate 10 mg 12/24/19 09:00 12/30/19 09:07 Norvasc PO 10 mg DAILY [facility] Administration Aspirin 81 mg 12/24/19 09:00 12/30/19 09:07 Aspirin Ec PO 81 mg DAILY [facility] Administration Atorvastatin Calcium 40 mg 12/24/19 09:00 12/30/19 09:07 Lipitor PO 40 mg DAILY [facility] Administration Clopidogrel Bisulfate 75 mg 12/24/19 09:00 12/30/19 09:07 Plavix PO 75 mg DAILY [facility] Administration Dextrose 12.5 gm 12/25/19 17:16 Dextrose 50% Syringe IV PUSH PRN PRN Hypoglycemia Protocol Diphenoxylate HCl/Atropine 1 tablet 12/25/19 09:00 12/29/19 09:10 Lomotil Tab 2.5 Mg PO 1 tablet Q48H [facility] Administration Gabapentin 300 mg 12/24/19 00:03 Neurontin PO BID PRN Muscle Spasticity Gabapentin 300 mg 12/24/19 09:00 12/30/19 09:08 Neurontin PO 300 mg DAILY [facility] Administration Glimepiride 4 mg 12/24/19 09:00 12/30/19 09:08 Amaryl PO 01/23/20 09:01 4 mg QAM [facility] Administration Glucagon 1 mg 12/25/19 17:16 Glucagon For Inj IM PRN PRN Hypoglycemia Protocol Glucose 15 gm 12/25/19 17:16 Glutose 15 PO PRN
[2019-12-30 14:00] VITALS: BP 132/69; PULSE 77; RESP 20; TEMP 36.4; O2SAT 99
[2019-12-30 16:55] LABS: Glucose Point of Care 181 (65-105)
[2019-12-30] MEDS: ACETAMINOPHEN 325 MG TABLET 650 MG PO (18:55)
[2019-12-30 20:50] LABS: Glucose Point of Care 235 (65-105)
[2019-12-30 22:00] VITALS: BP 146/70; PULSE 66; RESP 19; TEMP 36.3; O2SAT 97
[2019-12-31 04:43] LABS: Basophils Absolute Auto 0.1 K/mm3 (0.0-0.1); Basophils Percent Auto 0.8 % (0.2-1.2); Eosinophils Absolute Auto 0.4 K/mm3 (0-0.3); Eosinophils Percent Auto 3.9 % (0-4.4); Hematocrit 42.8 % (42.0-52.0); Hemoglobin 14.3 g/dL (14.0-18.0); Immature Granulocyte Absolute 0.02 K/mm3 (0.00-0.031); Immature Granulocyte Percent A 0.2 % (0-0.5); Lymphocytes Absolute Auto 1.72 K/mm3 (0.9-3.2); Lymphocytes Percent Auto 17.6 % (18.3-44.2); Mean Corpuscular HGB Conc 33.4 g/dl (32-36); Mean Corpuscular Hemoglobin 29.2 pg (26-34); Mean Corpuscular Volume 87.5 fl (80-100); Mean Platelet Volume 10.2 fl (7.4-10.4); Monocytes Absolute Auto 0.6 K/mm3 (0.1-0.6); Monocytes Percent Auto 6.1 % (2.6-8.5); Neutrophils Percent Auto 71.4 % (45.5-73.1); Platelet Count Result 222 k/mm3 (150-375); Red Blood Count 4.89 M/mm3 (4.6-6.20); Red Cell Distribution Width 13.1 % (11.5-14.5); White Blood Count 9.8 K/mm3 (4.5-10.0)
[2019-12-31 06:00] VITALS: BP 149/80; PULSE 80; RESP 19; TEMP 36.7; O2SAT 97
[2019-12-31 06:34] LABS: Blood Urea Nitrogen 22 mg/dL (9-20); Calcium 8.5 mg/dL (8.4-10.2); Carbon Dioxide 25 mmol/L (22-30); Chloride 107 mmol/L (98-107); Estimated CRCL calculation 135 ml/min; Estimated Glomerular Filt Rate > 60; Glucose 155 mg/dL (75-110); Potassium 3.6 mmol/L (3.4-5.0); Sodium 140 mmol/L (137-145)
[2019-12-31 06:59] LABS: Glucose Point of Care 158 (65-105)
[2019-12-31] MEDS: AMLODIPINE BESYLATE 5 MG TABLET 10 MG PO (07:44)
[2019-12-31] MEDS: INSULIN HUMAN NPH (*BKC) 100 UNITS/ML 10 UNITS SUB-Q ×2 (07:44→17:42)
[2019-12-31] MEDS: ATORVASTATIN 40 MG TABLET PO (07:45)
[2019-12-31] MEDS: CLOPIDOGREL BISULFATE 75 MG TABLET PO (07:45)
[2019-12-31] MEDS: ASPIRIN 81 MG ENTERIC TABLET PO (07:45)
[2019-12-31] MEDS: CHOLECALCIFEROL 1,000 UNIT TABLET 2000 UNITS PO (07:45)
[2019-12-31 07:46] VITALS: PULSE 80
[2019-12-31] MEDS: LOSARTAN POTASSIUM 100 MG TABLET PO (07:46)
[2019-12-31] MEDS: hydroCHLOROthiazide 25 MG TABLET PO (07:46)
[2019-12-31] MEDS: GLIMEPIRIDE 2 MG TABLET 4 MG PO (07:46)
[2019-12-31] MEDS: METOPROLOL SUCCINATE EXT REL 50 MG TABCR PO (07:46)
[2019-12-31] MEDS: GABAPENTIN 300 MG CAPSULE PO ×2 (07:46→18:02)
[2019-12-31] MEDS: OPTI-GEN TAB 1 TABLET PO (07:47)
[2019-12-31 12:15] LABS: Glucose Point of Care 158 (65-105)
--- NOTE | 2019-12-31 12:32 | WPDNEURORHBP ---
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 he was complaining of some pain at night we will treated symptomatically his sugars have been fairly decent and will cut back on the Accu-Cheks to 3 times a day the patient lives by himself and at this point is not entirely clear how much help we will have post discharge which with the tentatively planning to discharge on January 10, 2020 at this point he denies any new complaints except some pain and discomfort and night otherwise no headache nausea vomiting chest pain shortness of breath fever chills or sore throat Review of Systems Review of Systems: All systems reviewed & are unremarkable except as noted in HPI and below Functional Status Ambulation Ability Ability to Ambulate 10 Feet: Contact Guard Ability to Ambulate 50 Feet With 2 Turns: Contact Guard Ability to Ambulate 150 Feet: Moderate Assistance X 1 Ambulation Assistive Devices: Cane, Eric Transfers Ability Ability to Transfer In/Out of Chair: Moderate Assistance X 1 Exam Const: General: comfortable and no acute distress HENMT: General nose exam: Normal nares present Mouth: Yes moist mucous membranes Eyes: General: appearance normal, both eyes and all related structures Neck: Neck: supple and no JVD Resp: Effort & Inspection: normal respiratory effort Auscultation: clear to auscultation bilaterally Cardio: Rate: regular rate Rhythm: regular rhythm GI: GI Palp: Yes Soft to palpation Auscultation: normal bowel sounds Skin: General skin exam: normal color and no rashes or lesions noted Neuro: Other: patient remains awake and alert well oriented in time place and person with normal speech and language function and normal memory with moderately severe right-sided hemiparesis from which he is slowly improving legs improving better than the right arm Extrem: General: normal to inspection Psych: Mental Status: mental status grossly normal Objective Data Vital Signs Vital Signs: Vital Signs - 24 hr 12/30/19 14:00 12/30/19 22:00 12/31/19 06:00 Temperature 36.4 C 36.3 C L 36.7 C Pulse Rate 77 66 80 Respiratory Rate 20 19 19 Blood Pressure 132/69 146/70 H 149/80 H Pulse Oximetry 99 97 97 12/31/19 07:46 Temperature Pulse Rate 80 Respiratory Rate Blood Pressure Pulse Oximetry Intake/Output Intake/Output: Intake & Output 12/28/19 12/29/19 12/30/19 12/31/19 23:59 23:59 23:59 23:59 Intake Total 840 720 720 240 Balance 840 720 720 240 Meds/Results Medications: Active Medications Generic Name Dose Route Start Last Admin Trade Name Freq PRN Reason Stop Dose Admin Acetaminophen 650 mg 12/24/19 00:03 12/30/19 18:55 Tylenol Tablet PO 650 mg Q4H PRN Administration Pain Rated 1-3 Hydrocodone Bitart/Acetaminophen 1 tab 12/31/19 21:00 [place] 5-325 Mg PO [facility] Amlodipine Besylate 10 mg 12/24/19 09:00 12/31/19 07:44 Norvasc PO 10 mg DAILY [facility] Administration Aspirin 81 mg 12/24/19 09:00 12/31/19 07:45 Aspirin Ec PO 81 mg DAILY [facility] Administration Atorvastatin Calcium 40 mg 12/24/19 09:00 12/31/19 07:45 Lipitor PO 40 mg DAILY [facility] Administration Clopidogrel Bisulfate 75 mg 12/24/19 09:00 12/31/19 07:45 Plavix PO 75 mg DAILY [facility] Administration Dextrose 12.5 gm 12/25/19 17:16 Dextrose 50% Syringe IV PUSH PRN PRN Hypoglycemia Protocol Diphenoxylate HCl/Atropine 1 tablet 12/25/19 09:00 12/31/19 07:50 Lomotil Tab 2.5 Mg PO 1 tablet Q48H [facility] Administration Gabapentin 300 mg 12/24/19 00:03 Neurontin PO BID PRN Muscle Spasticity Gabapentin 300 mg 12/24/19 09:00 12/31/19 07:46 Neurontin PO 300 mg DAILY [facility] Administration Glimepiride 4 mg 12/24/19 09:00 12/31/19 07:46 Amaryl PO 01/23/20 09:01 4 mg QAM [facility]
[2019-12-31 14:00] VITALS: BP 132/76; PULSE 75; RESP 20; TEMP 36.8; O2SAT 97
[2019-12-31 17:02] LABS: Glucose Point of Care 148 (65-105)
[2019-12-31 22:00] VITALS: BP 144/69; PULSE 73; RESP 18; TEMP 36.4; O2SAT 96
[2020-01-01 05:47] VITALS: BP 151/72; PULSE 79; RESP 20; TEMP 36.4; O2SAT 97
[2020-01-01 06:56] LABS: Glucose Point of Care 156 (65-105)
--- NOTE | 2020-01-01 08:17 | PCPTNOTE ---
ANDRES Robbins KEESHAROSARIO completed an inpatient rehab wheelchair evaluation on Carmen Thornton on 01/01/2020. The patient is unable to safely and independently ambulate household distances due to their current impairments. Their diagnosis is cva and their impairments include decreased strength, decreased endurance,decreased balance, lower extremity weakness. Patient's weight bearing status is weight-bearing as tolerated on the bilateral lower legs. The patient demonstrates significant functional mobility limitations that impair their ability to participate in mobility-related activities of daily living (MRADLs), including toileting, feeding, dressing, grooming, and bathing in the customary locations in the home. These limitations cannot be sufficiently resolved by the use of an appropriately fitted cane or walker. It is recommended that the patient utilize a wheelchair for functional mobility within the home in order to facilitate optimal safety, independence and participation in all MRADL's and adequately access their home environment on a regular basis. The patient's home provides adequate access between rooms, maneuvering space, and surfaces to accommodate the recommended wheelchair. The use of a wheelchair for functional mobility is strongly recommended and the patient is receptive to using the wheelchair. The use of this wheelchair will significantly improve the patient's ability to participate in MRADLS and the patient will use it on a regular basis in the home. This will facilitate optimal safety, independence, and participation. The patient has demonstrated sufficient physical and mental capabilities needed to safely propel a manual wheelchair that is provided in the home during a typical day. Recommended Wheelchair Frame:22 width, 18 depth Recommended Wheelchair Cushion:standard Wheelchair Leg Recommendations: elevating removable leg rests and anti-tippers. and right arm trough - Elevating legrests are recommended because the patient has a musculoskeletal condition or the presence of a cast or brace which prevents 90 degree flexion at the knee. Elevating legrests are recommended because the patient has significant edema of the lower extremities that requires an elevating legrest. Elevating legrests are recommended is recommended because the patient's wheelchair is also recommended to have a reclining back. - Anti-tippers are recommended due to patient demonstrating increased risk for falls. They would benefit from anti-tippers with added safety and stabilization. - right arm trough is recommended because the patient has quadriplegia. A right arm trough is recommended because the patient has hemiplegia. A right arm trough is recommended because the patient has uncontrolled arm movements. Evaluating Therapist Date I agree with and certify that the above recommendation is medically necessary. Referring Physician Date I agree with and certify that the above recommendation is medically necessary. Referring Physician Date
[2020-01-01] MEDS: CLOPIDOGREL BISULFATE 75 MG TABLET PO (09:03)
[2020-01-01] MEDS: ASPIRIN 81 MG ENTERIC TABLET PO (09:03)
[2020-01-01] MEDS: GABAPENTIN 300 MG CAPSULE PO (09:03)
[2020-01-01] MEDS: AMLODIPINE BESYLATE 5 MG TABLET 10 MG PO (09:03)
[2020-01-01] MEDS: ATORVASTATIN 40 MG TABLET PO (09:03)
[2020-01-01] MEDS: CHOLECALCIFEROL 1,000 UNIT TABLET 2000 UNITS PO (09:03)
[2020-01-01] MEDS: LOSARTAN POTASSIUM 100 MG TABLET PO (09:04)
[2020-01-01] MEDS: GLIMEPIRIDE 2 MG TABLET 4 MG PO (09:04)
[2020-01-01] MEDS: OPTI-GEN TAB 1 TABLET PO (09:04)
[2020-01-01] MEDS: hydroCHLOROthiazide 25 MG TABLET PO (09:04)
[2020-01-01 09:06] VITALS: PULSE 82
[2020-01-01] MEDS: METOPROLOL SUCCINATE EXT REL 50 MG TABCR PO (09:06)
[2020-01-01] MEDS: INSULIN HUMAN NPH (*BKC) 100 UNITS/ML 10 UNITS SUB-Q ×2 (09:07→18:16)
[2020-01-01 12:05] LABS: Glucose Point of Care 87 (65-105)
--- NOTE | 2020-01-01 13:31 | WPDNEURORHBP ---
Subjective Date/time seen: 01/01/20 13:32 Interval history: this 64-year-old diabetic male is here after having had brainstem stroke which has left him almost pure motor weakness of the right side his right lower extremity has improved to a point that he is able to walk about 200 feet right upper extremities lagging behind and the movement on the shoulder are coming back however is unable to flex his right arm and clearly not able to use his right hand The patient denies any headache nausea vomiting chest pain shortness of breath fever chills sore throat or abdominal pain Review of Systems Review of Systems: All systems reviewed & are unremarkable except as noted in HPI and below Functional Status Ambulation Ability Ability to Ambulate 10 Feet: Contact Guard Ability to Ambulate 50 Feet With 2 Turns: Contact Guard Ability to Ambulate 150 Feet: Contact Guard Ambulation Assistive Devices: Cane, Eric Transfers Ability Ability to Transfer In/Out of Chair: Moderate Assistance X 1 Exam Const: General: comfortable and no acute distress HENMT: General nose exam: Normal nares present Mouth: Yes moist mucous membranes Eyes: General: appearance normal, both eyes and all related structures Neck: Neck: supple and no JVD Resp: Effort & Inspection: normal respiratory effort Auscultation: clear to auscultation bilaterally Cardio: Rate: regular rate Rhythm: regular rhythm GI: GI Palp: Yes Soft to palpation Auscultation: normal bowel sounds Skin: General skin exam: normal color and no rashes or lesions noted Neuro: Other: patient is awake and alert with normal speech and language function normal cranial examination improving right-sided hemiparesis lower extremity much more improved than the upper extremity Extrem: General: normal to inspection Psych: Mental Status: mental status grossly normal Objective Data Vital Signs Vital Signs: Vital Signs - 24 hr 12/31/19 14:00 12/31/19 22:00 01/01/20 05:47 Temperature 36.8 C 36.4 C L 36.4 C L Pulse Rate 75 73 79 Respiratory Rate 20 18 20 Blood Pressure 132/76 144/69 H 151/72 H Pulse Oximetry 97 96 97 01/01/20 09:06 Temperature Pulse Rate 82 Respiratory Rate Blood Pressure Pulse Oximetry Intake/Output Intake/Output: Intake & Output 12/29/19 12/30/19 12/31/19 01/01/20 23:59 23:59 23:59 23:59 Intake Total 720 720 720 600 Balance 720 720 720 600 Meds/Results Medications: Active Medications Generic Name Dose Route Start Last Admin Trade Name Freq PRN Reason Stop Dose Admin Acetaminophen 650 mg 12/24/19 00:03 12/30/19 18:55 Tylenol Tablet PO 650 mg Q4H PRN Administration Pain Rated 1-3 Hydrocodone Bitart/Acetaminophen 1 tab 12/31/19 21:00 12/31/19 20:00 [place] 5-325 Mg PO 1 tab HS [facility] Administration Amlodipine Besylate 10 mg 12/24/19 09:00 01/01/20 09:03 Norvasc PO 10 mg DAILY [facility] Administration Aspirin 81 mg 12/24/19 09:00 01/01/20 09:03 Aspirin Ec PO 81 mg DAILY [facility] Administration Atorvastatin Calcium 40 mg 12/24/19 09:00 01/01/20 09:03 Lipitor PO 40 mg DAILY [facility] Administration Clopidogrel Bisulfate 75 mg 12/24/19 09:00 01/01/20 09:03 Plavix PO 75 mg DAILY [facility] Administration Dextrose 12.5 gm 12/25/19 17:16 Dextrose 50% Syringe IV PUSH PRN PRN Hypoglycemia Protocol Diphenoxylate HCl/Atropine 1 tablet 12/25/19 09:00 12/31/19 07:50 Lomotil Tab 2.5 Mg PO 1 tablet Q48H [facility] Administration Gabapentin 300 mg 12/24/19 00:03 12/31/19 18:02 Neurontin PO 300 mg BID PRN Administration Muscle Spasticity Gabapentin 300 mg 12/24/19 09:00 01/01/20 09:03 Neurontin PO 300 mg DAILY [facility] Administration Glimepiride 4 mg 12/24/19 09:00 01/01/20 09:04 Amaryl PO 01/23/20 09:01 4 mg QAM [facility] Administration Glucagon 1 mg 12/25/19 17:16 Glucagon For Inj IM PRN PRN Hypoglycemia Protocol Glucose 15 gm
[2020-01-01 14:00] VITALS: BP 166/71; PULSE 86; RESP 20; TEMP 36.8; O2SAT 97
[2020-01-01 17:22] LABS: Glucose Point of Care 159 (65-105)
[2020-01-01 22:00] VITALS: BP 133/59; PULSE 77; RESP 18; TEMP 36.3; O2SAT 100
[2020-01-02 06:00] VITALS: BP 147/68; PULSE 66; RESP 20; TEMP 36.3; O2SAT 96
[2020-01-02 06:43] LABS: Glucose Point of Care 162 (65-105)
[2020-01-02] MEDS: ASPIRIN 81 MG ENTERIC TABLET PO (09:03)
[2020-01-02] MEDS: ATORVASTATIN 40 MG TABLET PO (09:03)
[2020-01-02] MEDS: CHOLECALCIFEROL 1,000 UNIT TABLET 2000 UNITS PO (09:03)
[2020-01-02] MEDS: AMLODIPINE BESYLATE 5 MG TABLET 10 MG PO (09:03)
[2020-01-02] MEDS: GLIMEPIRIDE 2 MG TABLET 4 MG PO (09:04)
[2020-01-02] MEDS: CLOPIDOGREL BISULFATE 75 MG TABLET PO (09:04)
[2020-01-02] MEDS: GABAPENTIN 300 MG CAPSULE PO (09:04)
[2020-01-02] MEDS: hydroCHLOROthiazide 25 MG TABLET PO (09:05)
[2020-01-02] MEDS: OPTI-GEN TAB 1 TABLET PO (09:05)
[2020-01-02] MEDS: LOSARTAN POTASSIUM 100 MG TABLET PO (09:05)
[2020-01-02 09:06] VITALS: PULSE 66
[2020-01-02] MEDS: INSULIN HUMAN NPH (*BKC) 100 UNITS/ML 10 UNITS SUB-Q ×2 (09:06→17:38)
[2020-01-02] MEDS: METOPROLOL SUCCINATE EXT REL 50 MG TABCR PO (09:06)
--- NOTE | 2020-01-02 11:49 | WPDNEURORHBP ---
Subjective Date/time seen: 01/02/20 11:49 Interval history: this 64-year-old of white male is here post brainstem stroke with emotional lability and the moderately severe almost pure motor weakness of the right side from which he is improving however the right upper extremities lagging behind the right lower extremity he denies any chest pain shortness of breath headache nausea and vomiting Review of Systems Review of Systems: All systems reviewed & are unremarkable except as noted in HPI and below Functional Status Ambulation Ability Ability to Ambulate 10 Feet: Contact Guard Ability to Ambulate 50 Feet With 2 Turns: Contact Guard Ability to Ambulate 150 Feet: Contact Guard Ambulation Assistive Devices: Cane, Eric Transfers Ability Ability to Transfer In/Out of Chair: Moderate Assistance X 1 Exam Const: General: comfortable and no acute distress HENMT: General nose exam: Normal nares present Mouth: Yes moist mucous membranes Eyes: General: appearance normal, both eyes and all related structures Neck: Neck: supple and no JVD Resp: Effort & Inspection: normal respiratory effort Auscultation: clear to auscultation bilaterally Cardio: Rate: regular rate Rhythm: regular rhythm GI: GI Palp: Yes Soft to palpation Auscultation: normal bowel sounds Skin: General skin exam: normal color and no rashes or lesions noted Neuro: Other: patient remains awake and alert well oriented time place and person with emotional lability most likely related to the brainstem stroke which fluctuates most the time however is doing fairly well right-sided hemiparesis is improving Extrem: General: normal to inspection Psych: Mental Status: mental status grossly normal Objective Data Vital Signs Vital Signs: Vital Signs - 24 hr 01/01/20 14:00 01/01/20 22:00 01/02/20 06:00 Temperature 36.8 C 36.3 C L 36.3 C L Pulse Rate 86 77 66 Respiratory Rate 20 18 20 Blood Pressure 166/71 H 133/59 L 147/68 H Pulse Oximetry 97 100 96 01/02/20 09:06 Temperature Pulse Rate 66 Respiratory Rate Blood Pressure Pulse Oximetry Intake/Output Intake/Output: Intake & Output 12/30/19 12/31/19 01/01/20 01/02/20 23:59 23:59 23:59 23:59 Intake Total 720 720 840 480 Balance 720 720 840 480 Meds/Results Medications: Active Medications Generic Name Dose Route Start Last Admin Trade Name Freq PRN Reason Stop Dose Admin Acetaminophen 650 mg 12/24/19 00:03 12/30/19 18:55 Tylenol Tablet PO 650 mg Q4H PRN Administration Pain Rated 1-3 Hydrocodone Bitart/Acetaminophen 1 tab 12/31/19 21:00 01/01/20 19:44 [place] 5-325 Mg PO 1 tab HS [facility] Administration Amlodipine Besylate 10 mg 12/24/19 09:00 01/02/20 09:03 Norvasc PO 10 mg DAILY [facility] Administration Aspirin 81 mg 12/24/19 09:00 01/02/20 09:03 Aspirin Ec PO 81 mg DAILY [facility] Administration Atorvastatin Calcium 40 mg 12/24/19 09:00 01/02/20 09:03 Lipitor PO 40 mg DAILY [facility] Administration Clopidogrel Bisulfate 75 mg 12/24/19 09:00 01/02/20 09:04 Plavix PO 75 mg DAILY [facility] Administration Dextrose 12.5 gm 12/25/19 17:16 Dextrose 50% Syringe IV PUSH PRN PRN Hypoglycemia Protocol Diphenoxylate HCl/Atropine 1 tablet 12/25/19 09:00 01/02/20 09:04 Lomotil Tab 2.5 Mg PO Not Given Q48H [facility] Gabapentin 300 mg 12/24/19 00:03 12/31/19 18:02 Neurontin PO 300 mg BID PRN Administration Muscle Spasticity Gabapentin 300 mg 12/24/19 09:00 01/02/20 09:04 Neurontin PO 300 mg DAILY [facility] Administration Glimepiride 4 mg 12/24/19 09:00 01/02/20 09:04 Amaryl PO 01/23/20 09:01 4 mg QAM [facility] Administration Glucagon 1 mg 12/25/19 17:16 Glucagon For Inj IM PRN PRN Hypoglycemia Protocol Glucose 15 gm 12/25/19 17:16 Glutose 15 PO PRN PRN Hypoglycemia Protocol Hydrochlorothiazide 25 mg 12/24/19 09:00 01/02/20 09:05 Hydrochlorot
[2020-01-02 12:02] LABS: Glucose Point of Care 99 (65-105)
[2020-01-02 14:00] VITALS: BP 130/79; PULSE 85; RESP 20; TEMP 36.5; O2SAT 98
--- NOTE | 2020-01-02 14:47 | PCDIET ---
Nutrition Follow-Up Complete: Nutrition Diagnosis: Decreased saturated fat/sodium needs related to cardiovascular disease as evidenced by hx high cholesterol, HTN and recent CVA. Nutrition Goal: Patient to consume 75% of meals or greater. Goal met. Patient consuming 100% of most meals on diabetic, carbohydrate controlled diet. Diet appropriate with addition of heart healthy restriction correction. Information previously given to patient. Last recorded weight is 130 kg. Recommend obtaining new weight. Bowel Motility: Patient taking Lomotil every other day without reported issues. Labs Reviewed: Glu (99) Meds Noted: Lomotil, Amaryl, Hydrochlorothiazide, Ocuvite, Vitamin D, Insulin Regular NPH Additional Notes: No documented skin breakdown. Information obtained from chart due to COVID-19 precautions. Nutrition Monitoring and Evaluation: Follow up every 7 days.
[2020-01-02 17:15] LABS: Glucose Point of Care 204 (65-105)
[2020-01-02 21:26] VITALS: BP 152/75; PULSE 68; RESP 16; TEMP 36.4; O2SAT 98
[2020-01-03 06:00] VITALS: BP 159/77; PULSE 68; RESP 20; TEMP 36.3; O2SAT 98
[2020-01-03 06:47] LABS: Glucose Point of Care 160 (65-105)
[2020-01-03] MEDS: ASPIRIN 81 MG ENTERIC TABLET PO (08:22)
[2020-01-03] MEDS: ATORVASTATIN 40 MG TABLET PO (08:22)
[2020-01-03] MEDS: CLOPIDOGREL BISULFATE 75 MG TABLET PO (08:22)
[2020-01-03] MEDS: CHOLECALCIFEROL 1,000 UNIT TABLET 2000 UNITS PO (08:22)
[2020-01-03] MEDS: AMLODIPINE BESYLATE 5 MG TABLET 10 MG PO (08:22)
[2020-01-03] MEDS: LOSARTAN POTASSIUM 100 MG TABLET PO (08:23)
[2020-01-03] MEDS: hydroCHLOROthiazide 25 MG TABLET PO (08:23)
[2020-01-03] MEDS: GABAPENTIN 300 MG CAPSULE PO (08:23)
[2020-01-03] MEDS: OPTI-GEN TAB 1 TABLET PO (08:23)
[2020-01-03] MEDS: GLIMEPIRIDE 2 MG TABLET 4 MG PO (08:23)
[2020-01-03 08:24] VITALS: PULSE 72
[2020-01-03] MEDS: METOPROLOL SUCCINATE EXT REL 50 MG TABCR PO (08:24)
[2020-01-03] MEDS: INSULIN HUMAN NPH (*BKC) 100 UNITS/ML 10 UNITS SUB-Q ×2 (08:26→17:00)
[2020-01-03 11:55] LABS: Glucose Point of Care 165 (65-105)
--- NOTE | 2020-01-03 13:19 | WPDNEURORHBP ---
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 is improving and is emotionally more stable and looking forward to getting better he in fact is doing remarkably well and as for as the walking is concerned Bernie Pratt his right upper extremities doing much better Patient denies any headache nausea vomiting chest pain shortness of breath fever chills or sore throat Review of Systems Review of Systems: All systems reviewed & are unremarkable except as noted in HPI and below Functional Status Ambulation Ability Ability to Ambulate 10 Feet: Standby Assistance Ability to Ambulate 50 Feet With 2 Turns: Contact Guard Ability to Ambulate 150 Feet: Contact Guard Ambulation Assistive Devices: Cane, Eric Transfers Ability Ability to Transfer In/Out of Chair: Standby Assistance Exam Const: General: comfortable and no acute distress HENMT: General nose exam: Normal nares present Mouth: Yes moist mucous membranes Eyes: General: appearance normal, both eyes and all related structures Neck: Neck: supple and no JVD Resp: Effort & Inspection: normal respiratory effort Auscultation: clear to auscultation bilaterally Cardio: Rate: regular rate Rhythm: regular rhythm GI: GI Palp: Yes Soft to palpation Auscultation: normal bowel sounds Skin: General skin exam: normal color and no rashes or lesions noted Neuro: Other: the mental status examination is normal the cranial exam shows normal right-sided hemiparesis is improving of course he also has a component of peripheral neuropathy related to his longstanding diabetes Extrem: General: normal to inspection Psych: Mental Status: mental status grossly normal Objective Data Vital Signs Vital Signs: Vital Signs - 24 hr 01/02/20 14:00 01/02/20 21:26 01/03/20 06:00 Temperature 36.5 C 36.4 C L 36.3 C L Pulse Rate 85 68 68 Respiratory Rate 20 16 20 Blood Pressure 130/79 152/75 H 159/77 H Pulse Oximetry 98 98 98 01/03/20 08:24 Temperature Pulse Rate 72 Respiratory Rate Blood Pressure Pulse Oximetry Intake/Output Intake/Output: Intake & Output 12/31/19 01/01/20 01/02/20 01/03/20 23:59 23:59 23:59 23:59 Intake Total 720 840 960 240 Balance 720 840 960 240 Meds/Results Medications: Active Medications Generic Name Dose Route Start Last Admin Trade Name Kenna PRN Reason Stop Dose Admin Acetaminophen 650 mg 12/24/19 00:03 12/30/19 18:55 Tylenol Tablet PO 650 mg Q4H PRN Administration Pain Rated 1-3 Hydrocodone Bitart/Acetaminophen 1 tab 12/31/19 21:00 01/02/20 19:37 [place] 5-325 Mg PO 1 tab HS BRITTANY Administration Amlodipine Besylate 10 mg 12/24/19 09:00 01/03/20 08:22 Norvasc PO 10 mg DAILY BRITTANY Administration Aspirin 81 mg 12/24/19 09:00 01/03/20 08:22 Aspirin Ec PO 81 mg DAILY BRITTANY Administration Atorvastatin Calcium 40 mg 12/24/19 09:00 01/03/20 08:22 Lipitor PO 40 mg DAILY BRITTANY Administration Clopidogrel Bisulfate 75 mg 12/24/19 09:00 01/03/20 08:22 Plavix PO 75 mg DAILY BRITTANY Administration Dextrose 12.5 gm 12/25/19 17:16 Dextrose 50% Syringe IV PUSH PRN PRN Hypoglycemia Protocol Diphenoxylate HCl/Atropine 1 tablet 12/25/19 09:00 01/02/20 09:04 Lomotil Tab 2.5 Mg PO Not Given Q48H BRITTANY Gabapentin 300 mg 12/24/19 00:03 12/31/19 18:02 Neurontin PO 300 mg BID PRN Administration Muscle Spasticity Gabapentin 300 mg 12/24/19 09:00 01/03/20 08:23 Neurontin PO 300 mg DAILY BRITTANY Administration Glimepiride 4 mg 12/24/19 09:00 01/03/20 08:23 Amaryl PO 01/23/20 09:01 4 mg QAM BRITTANY Administration Glucagon 1 mg 12/25/19 17:16 Glucagon For Inj IM PRN PRN Hypoglycemia Protocol Glucose 15 gm 12/25/19 17:16 Glutose 15 PO PRN PRN Hypoglycemia Protocol Hydrochl
[2020-01-03 14:00] VITALS: BP 140/75; PULSE 74; RESP 18; TEMP 36.3; O2SAT 100
[2020-01-03 16:55] LABS: Glucose Point of Care 181 (65-105)
[2020-01-03 21:09] VITALS: BP 160/86; PULSE 80; RESP 20; TEMP 36.4; O2SAT 98
[2020-01-04 06:00] VITALS: BP 153/83; PULSE 76; RESP 20; TEMP 35.9; O2SAT 98
[2020-01-04 06:57] LABS: Glucose Point of Care 139 (65-105)
[2020-01-04] MEDS: INSULIN HUMAN NPH (*BKC) 100 UNITS/ML 10 UNITS SUB-Q ×2 (08:38→17:37)
[2020-01-04] MEDS: CHOLECALCIFEROL 1,000 UNIT TABLET 2000 UNITS PO (08:39)
[2020-01-04] MEDS: ASPIRIN 81 MG ENTERIC TABLET PO (08:39)
[2020-01-04] MEDS: AMLODIPINE BESYLATE 5 MG TABLET 10 MG PO (08:39)
[2020-01-04] MEDS: ATORVASTATIN 40 MG TABLET PO (08:39)
[2020-01-04] MEDS: GABAPENTIN 300 MG CAPSULE PO (08:40)
[2020-01-04] MEDS: hydroCHLOROthiazide 25 MG TABLET PO (08:40)
[2020-01-04] MEDS: GLIMEPIRIDE 2 MG TABLET 4 MG PO (08:40)
[2020-01-04] MEDS: CLOPIDOGREL BISULFATE 75 MG TABLET PO (08:40)
[2020-01-04 08:41] VITALS: PULSE 76
[2020-01-04] MEDS: LOSARTAN POTASSIUM 100 MG TABLET PO (08:41)
[2020-01-04] MEDS: OPTI-GEN TAB 1 TABLET PO (08:41)
[2020-01-04] MEDS: METOPROLOL SUCCINATE EXT REL 50 MG TABCR PO (08:41)
--- NOTE | 2020-01-04 10:18 | WPDNEURORHBP ---
Subjective Date/time seen: 01/04/20 10:18 Functional Status Ambulation Ability Ability to Ambulate 10 Feet: Standby Assistance Ability to Ambulate 50 Feet With 2 Turns: Contact Guard Ability to Ambulate 150 Feet: Contact Guard Ambulation Assistive Devices: Cane, Eric Transfers Ability Ability to Transfer In/Out of Chair: Standby Assistance Objective Data Vital Signs Vital Signs: Vital Signs - 24 hr 01/03/20 14:00 01/03/20 21:09 01/04/20 06:00 Temperature 36.3 C L 36.4 C L 35.9 C L Pulse Rate 74 80 76 Respiratory Rate 18 20 20 Blood Pressure 140/75 160/86 H 153/83 H Pulse Oximetry 100 98 98 01/04/20 08:41 Temperature Pulse Rate 76 Respiratory Rate Blood Pressure Pulse Oximetry Intake/Output Intake/Output: Intake & Output 01/01/20 01/02/20 01/03/20 01/04/20 23:59 23:59 23:59 23:59 Intake Total 840 960 720 240 Balance 840 960 720 240 Meds/Results Medications: Active Medications Generic Name Dose Route Start Last Admin Trade Name Freq PRN Reason Stop Dose Admin Acetaminophen 650 mg 12/24/19 00:03 12/30/19 18:55 Tylenol Tablet PO 650 mg Q4H PRN Administration Pain Rated 1-3 Hydrocodone Bitart/Acetaminophen 1 tab 12/31/19 21:00 01/03/20 20:00 [place] 5-325 Mg PO 1 tab HS RBITTANY Administration Amlodipine Besylate 10 mg 12/24/19 09:00 01/04/20 08:39 Norvasc PO 10 mg DAILY BRITTANY Administration Aspirin 81 mg 12/24/19 09:00 01/04/20 08:39 Aspirin Ec PO 81 mg DAILY BRITTANY Administration Atorvastatin Calcium 40 mg 12/24/19 09:00 01/04/20 08:39 Lipitor PO 40 mg DAILY BRITTANY Administration Clopidogrel Bisulfate 75 mg 12/24/19 09:00 01/04/20 08:40 Plavix PO 75 mg DAILY BRITTANY Administration Dextrose 12.5 gm 12/25/19 17:16 Dextrose 50% Syringe IV PUSH PRN PRN Hypoglycemia Protocol Diphenoxylate HCl/Atropine 1 tablet 12/25/19 09:00 01/04/20 08:43 Lomotil Tab 2.5 Mg PO 1 tablet Q48H BRITTANY Administration Gabapentin 300 mg 12/24/19 00:03 12/31/19 18:02 Neurontin PO 300 mg BID PRN Administration Muscle Spasticity Gabapentin 300 mg 12/24/19 09:00 01/04/20 08:40 Neurontin PO 300 mg DAILY BRITTANY Administration Glimepiride 4 mg 12/24/19 09:00 01/04/20 08:40 Amaryl PO 01/23/20 09:01 4 mg QAM BRITTANY Administration Glucagon 1 mg 12/25/19 17:16 Glucagon For Inj IM PRN PRN Hypoglycemia Protocol Glucose 15 gm 12/25/19 17:16 Glutose 15 PO PRN PRN Hypoglycemia Protocol Hydrochlorothiazide 25 mg 12/24/19 09:00 01/04/20 08:40 Hydrochlorothiazide PO 25 mg DAILY BRITTANY Administration Dextrose 1,000 mls @ 100 mls/hr 12/25/19 17:16 Dextrose 5% 1,000 Ml IVPB PRN PRN Hypoglycemia Protocol Insulin Human NPH 10 units 12/24/19 08:00 01/04/20 08:38 SUB-Q 10 units BIDWM BRITTANY Administration Losartan Potassium 100 mg 12/24/19 09:00 01/04/20 08:41 Cozaar PO 100 mg DAILY BRITTANY Administration Metoprolol Succinate 50 mg 12/24/19 09:00 01/04/20 08:41 Toprol Xl PO 50 mg DAILY BRITTANY Administration Multivitamins/Minerals 1 tablet 12/24/19 09:00 01/04/20 08:41 Ocuvite PO 1 tablet DAILY BRITTANY Administration Vitamin D 2,000 unit 12/24/19 09:00 01/04/20 08:39 Vitamin D PO 2,000 unit DAILY BRITTANY Administration Labs Labs: Laboratory Results - last 24 hr 01/03/20 01/03/20 01/04/20 11:52 16:46 06:50 POC Capillary Glucose 165 H 181 H 139 H
--- NOTE | 2020-01-04 10:18 | WPDNEURORHBP ---
Subjective Date/time seen: 01/04/20 10:18 Review of Systems Review of Systems: All systems reviewed & are unremarkable except as noted in HPI and below Functional Status Ambulation Ability Ability to Ambulate 10 Feet: Standby Assistance Ability to Ambulate 50 Feet With 2 Turns: Contact Guard Ability to Ambulate 150 Feet: Contact Guard Ambulation Assistive Devices: Cane, Eric Transfers Ability Ability to Transfer In/Out of Chair: Standby Assistance Exam Const: General: cooperative, no acute distress, alert and awake Nutritional Appearance: obese HENMT: Head: normal to inspection Ears: hearing grossly normal bilaterally General nose exam: Normal external nose present and No nasal discharge present Eyes: General: appearance normal, both eyes and all related structures Alignment and Position: alignment normal Periorbital: periorbital findings normal Eyelids: eyelids normal Conjunctivae: conjunctivae normal Sclera: sclerae normal Cornea: corneas normal Pupils: Equal, round and reactive pupils present EOM: EOMs intact bilaterally Neck: Neck: full ROM Resp: Effort & Inspection: normal respiratory effort Auscultation: clear to auscultation bilaterally Cardio: Rate: regular rate Rhythm: regular rhythm GI: Auscultation: normal bowel sounds Skin: General skin exam: no rashes or lesions noted Neuro: General: patient oriented x3, moves all extremities and Unable to assess gait Cranial nerves: Yes Equal, round and reactive pupils present, Yes Bilaterally intact EOM present, Yes Nystagmus not present, Yes Normal facial strength present, Yes Midline tongue present, Yes Symmetric palate elevation present, Yes Normal hearing present, Yes Ability to bilaterally rotate head present and Yes Ability to bilaterally elevate shoulders present Cognition (Neuro): normal cognition Speech: normal speech Motor exam (neuro): Abnormal motor strength present (mild right hemiparesis) Sensory Exam: Abnormal lower extremity sensory exam (decreased sensation distally) Deep tendon reflexes (DTR's): Right triceps reflex intensity grade: 1+, Left triceps reflex intensity grade: 1+, Rt Biceps (C5, C6): 1+, Left biceps reflex intensity grade: 1+, Right brachioradialis reflex intensity grade: 1+, Left brachioradialis reflex intensity grade: 1+, Right patellar reflex intensity grade: 1+, Left patellar reflex intensity grade: 0, Right ankle reflex intensity grade: 0 and Left ankle reflex intensity grade: 0 Plantar Reflex Responses: downgoing: bilateral Psych: Appearance: grossly normal Objective Data Vital Signs Vital Signs: Vital Signs - 24 hr 01/03/20 14:00 01/03/20 21:09 01/04/20 06:00 Temperature 36.3 C L 36.4 C L 35.9 C L Pulse Rate 74 80 76 Respiratory Rate 18 20 20 Blood Pressure 140/75 160/86 H 153/83 H Pulse Oximetry 100 98 98 01/04/20 08:41 Temperature Pulse Rate 76 Respiratory Rate Blood Pressure Pulse Oximetry Intake/Output Intake/Output: Intake & Output 01/01/20 01/02/20 01/03/20 01/04/20 23:59 23:59 23:59 23:59 Intake Total 840 960 720 240 Balance 840 960 720 240 Meds/Results Medications: Active Medications Generic Name Dose Route Start Last Admin Trade Name Freq PRN Reason Stop Dose Admin Acetaminophen 650 mg 12/24/19 00:03 12/30/19 18:55 Tylenol Tablet PO 650 mg Q4H PRN Administration Pain Rated 1-3 Hydrocodone Bitart/Acetaminophen 1 tab 12/31/19 21:00 01/03/20 20:00 [place] 5-325 Mg PO 1 tab HS BRITTANY Administration Amlodipine Besylate 10 mg 12/24/19 09:00 01/04/20 08:39 Norvasc PO 10 mg DAILY BRITTANY Administration Aspirin 81 mg 12/24/19 09:00 01/04/20 08:39 Aspirin Ec PO 81 mg DAILY BRITTANY Administration Atorvastatin Calcium 40 mg 12/24/19 09:00 01/04/20 08:39 Lipitor PO 40 mg DAILY BRITTANY Administration Clopidogrel Bisulfate 75 mg 12/24/19 09:00 01/04/20 08:40 Plavix PO 75 mg DAILY BRITTANY Administration Dextrose 12.5 gm 12/25/19 1
[2020-01-04 12:00] LABS: Glucose Point of Care 162 (65-105)
[2020-01-04 14:00] VITALS: BP 142/74; PULSE 82; RESP 20; TEMP 36.2; O2SAT 100
[2020-01-04 16:50] LABS: Glucose Point of Care 157 (65-105)
[2020-01-04 22:00] VITALS: BP 168/80; PULSE 82; RESP 18; TEMP 36.5; O2SAT 99
[2020-01-05 06:00] VITALS: BP 151/78; PULSE 76; RESP 18; TEMP 36.4; O2SAT 98
[2020-01-05 06:58] LABS: Glucose Point of Care 174 (65-105)
[2020-01-05] MEDS: INSULIN HUMAN NPH (*BKC) 100 UNITS/ML 10 UNITS SUB-Q ×2 (08:31→17:40)
[2020-01-05] MEDS: ASPIRIN 81 MG ENTERIC TABLET PO (08:32)
[2020-01-05] MEDS: CHOLECALCIFEROL 1,000 UNIT TABLET 2000 UNITS PO (08:32)
[2020-01-05] MEDS: ATORVASTATIN 40 MG TABLET PO (08:32)
[2020-01-05] MEDS: AMLODIPINE BESYLATE 5 MG TABLET 10 MG PO (08:32)
[2020-01-05] MEDS: hydroCHLOROthiazide 25 MG TABLET PO (08:33)
[2020-01-05] MEDS: CLOPIDOGREL BISULFATE 75 MG TABLET PO (08:33)
[2020-01-05] MEDS: GABAPENTIN 300 MG CAPSULE PO ×2 (08:33→20:10)
[2020-01-05] MEDS: LOSARTAN POTASSIUM 100 MG TABLET PO (08:33)
[2020-01-05] MEDS: GLIMEPIRIDE 2 MG TABLET 4 MG PO (08:33)
[2020-01-05 08:34] VITALS: PULSE 76
[2020-01-05] MEDS: OPTI-GEN TAB 1 TABLET PO (08:34)
[2020-01-05] MEDS: METOPROLOL SUCCINATE EXT REL 50 MG TABCR PO (08:34)
[2020-01-05 11:43] LABS: Glucose Point of Care 145 (65-105)
[2020-01-05 14:00] VITALS: BP 137/68; PULSE 77; RESP 20; TEMP 36.2; O2SAT 98
[2020-01-05 17:15] LABS: Glucose Point of Care 176 (65-105)
[2020-01-05 22:00] VITALS: BP 174/75; PULSE 83; RESP 20; TEMP 36.3; O2SAT 97
[2020-01-06 06:00] VITALS: BP 138/75; PULSE 73; RESP 20; TEMP 36.4; O2SAT 97
[2020-01-06 07:14] LABS: Glucose Point of Care 179 (65-105)
[2020-01-06] MEDS: OPTI-GEN TAB 1 TABLET PO (08:38)
[2020-01-06] MEDS: CHOLECALCIFEROL 1,000 UNIT TABLET 2000 UNITS PO (08:38)
[2020-01-06 08:39] VITALS: PULSE 73
[2020-01-06] MEDS: CLOPIDOGREL BISULFATE 75 MG TABLET PO (08:39)
[2020-01-06] MEDS: GLIMEPIRIDE 2 MG TABLET 4 MG PO (08:39)
[2020-01-06] MEDS: ASPIRIN 81 MG ENTERIC TABLET PO (08:39)
[2020-01-06] MEDS: GABAPENTIN 300 MG CAPSULE PO (08:39)
[2020-01-06] MEDS: METOPROLOL SUCCINATE EXT REL 50 MG TABCR PO (08:39)
[2020-01-06] MEDS: AMLODIPINE BESYLATE 5 MG TABLET 10 MG PO (08:39)
[2020-01-06] MEDS: LOSARTAN POTASSIUM 100 MG TABLET PO (08:39)
[2020-01-06] MEDS: ATORVASTATIN 40 MG TABLET PO (08:39)
[2020-01-06] MEDS: hydroCHLOROthiazide 25 MG TABLET PO (08:40)
[2020-01-06] MEDS: INSULIN HUMAN NPH (*BKC) 100 UNITS/ML 10 UNITS SUB-Q ×2 (08:43→17:15)
--- NOTE | 2020-01-06 10:49 | WPDNEURORHBP ---
Subjective Date/time seen: 01/06/20 10:49 S/P stroke withsome discomfort in shoulder,sleeping OK Review of Systems Review of Systems: All systems reviewed & are unremarkable except as noted in HPI and below Functional Status Ambulation Ability Ability to Ambulate 10 Feet: Standby Assistance Ability to Ambulate 50 Feet With 2 Turns: Standby Assistance Ability to Ambulate 150 Feet: Standby Assistance Ambulation Assistive Devices: Cane, Eric Transfers Ability Ability to Transfer In/Out of Chair: Standby Assistance Exam Const: General: cooperative, comfortable and no acute distress Nutritional Appearance: obese HENMT: Head: normal to inspection General nose exam: No nasal discharge present Mouth: Yes Normal oral and palatal mucosa present and Yes tongue normal Eyes: General: appearance normal, both eyes and all related structures Neck: Neck: full ROM and no lymphadenopathy Resp: Effort & Inspection: normal respiratory effort and able to speak in complete sentences Auscultation: clear to auscultation bilaterally Cardio: Rate: regular rate Rhythm: regular rhythm GI: Auscultation: normal bowel sounds Skin: General skin exam: no rashes or lesions noted Neuro: General: patient oriented x3 and moves all extremities Cranial nerves: Yes Equal, round and reactive pupils present, Yes Nystagmus not present, Yes Normal facial strength present, Yes Midline tongue present, Yes Symmetric palate elevation present, Yes Ability to bilaterally rotate head present and Yes Ability to bilaterally elevate shoulders present Cognition (Neuro): normal cognition Speech: normal speech Motor exam (neuro): 5/5 motor strength present throughout (mild right eric) Sensory Exam: normal sensation Deep tendon reflexes (DTR's): Right triceps reflex intensity grade: 1+, Left triceps reflex intensity grade: 1+, Rt Biceps (C5, C6): 1+, Left biceps reflex intensity grade: 1+, Right brachioradialis reflex intensity grade: 1+, Left brachioradialis reflex intensity grade: 1+, Right patellar reflex intensity grade: 1+, Left patellar reflex intensity grade: 0, Right ankle reflex intensity grade: 0 and Left ankle reflex intensity grade: 0 Plantar Reflex Responses: downgoing: bilateral Psych: Appearance: grossly normal Objective Data Vital Signs Vital Signs: Vital Signs - 24 hr 01/05/20 14:00 01/05/20 22:00 01/06/20 06:00 Temperature 36.2 C L 36.3 C L 36.4 C Pulse Rate 77 83 73 Respiratory Rate 20 Blood Pressure 137/68 174/75 H 138/75 Pulse Oximetry 98 97 97 01/06/20 08:39 Temperature Pulse Rate 73 Respiratory Rate Blood Pressure Pulse Oximetry Intake/Output Intake/Output: Intake & Output 01/03/20 01/04/20 01/05/20 01/06/20 23:59 23:59 23:59 23:59 Intake Total 720 720 720 240 Balance 720 720 720 240 Meds/Results Medications: Active Medications Generic Name Dose Route Start Last Admin Trade Name Freq PRN Reason Stop Dose Admin Acetaminophen 650 mg 12/24/19 00:03 12/30/19 18:55 Tylenol Tablet PO 650 mg Q4H PRN Administration Pain Rated 1-3 Hydrocodone Bitart/Acetaminophen 1 tab 01/04/20 19:00 01/05/20 19:46 [place] 5-325 Mg PO 1 tab HS BRITTANY Administration Amlodipine Besylate 10 mg 12/24/19 09:00 01/06/20 08:39 Norvasc PO 10 mg DAILY BRITTANY Administration Aspirin 81 mg 12/24/19 09:00 01/06/20 08:39 Aspirin Ec PO 81 mg DAILY BRITTANY Administration Atorvastatin Calcium 40 mg 12/24/19 09:00 01/06/20 08:39 Lipitor PO 40 mg DAILY BRITTANY Administration Clopidogrel Bisulfate 75 mg 12/24/19 09:00 01/06/20 08:39 Plavix PO 75 mg DAILY BRITTANY Administration Dextrose 12.5 gm 12/25/19 17:16 Dextrose 50% Syringe IV PUSH PRN PRN Hypoglycemia Protocol Diphenoxylate HCl/Atropine 1 tablet 12/25/19 09:00 01/06/20 08:42 Lomotil Tab 2.5 Mg PO 1 tablet Q48H BRITTANY Administration Gabapentin 300 mg 12/24/19 00:03 01/05/20 20:10 Neurontin PO 30
[2020-01-06 12:37] LABS: Glucose Point of Care 100 (65-105)
[2020-01-06 14:00] VITALS: BP 132/75; PULSE 76; RESP 20; TEMP 36.8; O2SAT 98
[2020-01-06 17:14] LABS: Glucose Point of Care 148 (65-105)
[2020-01-06 21:07] VITALS: BP 149/69; PULSE 65; RESP 20; TEMP 36.1; O2SAT 98
[2020-01-07 04:37] LABS: Basophils Absolute Auto 0.1 K/mm3 (0.0-0.1); Basophils Percent Auto 0.7 % (0.2-1.2); Eosinophils Absolute Auto 0.5 K/mm3 (0-0.3); Eosinophils Percent Auto 4.9 % (0-4.4); Hematocrit 42.3 % (42.0-52.0); Hemoglobin 14.2 g/dL (14.0-18.0); Immature Granulocyte Absolute 0.03 K/mm3 (0.00-0.031); Immature Granulocyte Percent A 0.3 % (0-0.5); Lymphocytes Absolute Auto 1.98 K/mm3 (0.9-3.2); Lymphocytes Percent Auto 20.8 % (18.3-44.2); Mean Corpuscular HGB Conc 33.6 g/dl (32-36); Mean Corpuscular Hemoglobin 29.1 pg (26-34); Mean Corpuscular Volume 86.7 fl (80-100); Monocytes Absolute Auto 0.6 K/mm3 (0.1-0.6); Monocytes Percent Auto 5.8 % (2.6-8.5); Neutrophils Absolute Auto 6.4 K/mm3 (1.3-6.7); Neutrophils Percent Auto 67.5 % (45.5-73.1); Platelet Count Result 224 k/mm3 (150-375); Red Blood Count 4.88 M/mm3 (4.6-6.20); White Blood Count 9.5 K/mm3 (4.5-10.0)
[2020-01-07 04:55] LABS: Blood Urea Nitrogen 20 mg/dL (9-20); Calcium 8.6 mg/dL (8.4-10.2); Carbon Dioxide 29 mmol/L (22-30); Chloride 104 mmol/L (98-107); Estimated CRCL calculation 155 ml/min; Estimated Glomerular Filt Rate > 60; Glucose 168 mg/dL (75-110); Potassium 3.6 mmol/L (3.4-5.0); Sodium 139 mmol/L (137-145)
[2020-01-07 06:00] VITALS: BP 134/67; PULSE 69; RESP 20; TEMP 36.2; O2SAT 97
[2020-01-07 07:01] LABS: Glucose Point of Care 154 (65-105)
[2020-01-07 07:06] VITALS: BP 120/61; PULSE 66; RESP 20; TEMP 36.5; O2SAT 99
[2020-01-07 09:10] VITALS: PULSE 68
[2020-01-07] MEDS: AMLODIPINE BESYLATE 5 MG TABLET 10 MG PO (09:10)
[2020-01-07] MEDS: CHOLECALCIFEROL 1,000 UNIT TABLET 2000 UNITS PO (09:10)
[2020-01-07] MEDS: hydroCHLOROthiazide 25 MG TABLET PO (09:10)
[2020-01-07] MEDS: METOPROLOL SUCCINATE EXT REL 50 MG TABCR PO (09:10)
[2020-01-07] MEDS: ASPIRIN 81 MG ENTERIC TABLET PO (09:10)
[2020-01-07] MEDS: GLIMEPIRIDE 2 MG TABLET 4 MG PO (09:11)
[2020-01-07] MEDS: ATORVASTATIN 40 MG TABLET PO (09:11)
[2020-01-07] MEDS: LOSARTAN POTASSIUM 100 MG TABLET PO (09:11)
[2020-01-07] MEDS: OPTI-GEN TAB 1 TABLET PO (09:11)
[2020-01-07] MEDS: CLOPIDOGREL BISULFATE 75 MG TABLET PO (09:11)
[2020-01-07] MEDS: GABAPENTIN 300 MG CAPSULE PO ×2 (09:11→20:36)
[2020-01-07] MEDS: INSULIN HUMAN NPH (*BKC) 100 UNITS/ML 10 UNITS SUB-Q ×2 (10:32→17:27)
[2020-01-07 11:50] VITALS: PULSE 68; RESP 20
[2020-01-07 11:57] LABS: Glucose Point of Care 127 (65-105)
--- NOTE | 2020-01-07 12:24 | WPDNEURORHBP ---
Subjective Date/time seen: 01/07/20 12:24 Interval history: This 64-year-old overweight diabetic male is here after having had brainstem stroke with almost pure motor weakness of the right side from which he is improving and able to walk over to 100 feet the right upper extremities lagging behind the leg but overall significant improvement and is emotional status also has improved Patient denies any fever chills sore throat headache nausea vomiting shortness of breath or bladder or bowel dysfunction Review of Systems Review of Systems: All systems reviewed & are unremarkable except as noted in HPI and below Functional Status Ambulation Ability Ability to Ambulate 10 Feet: Independent Ability to Ambulate 50 Feet With 2 Turns: Independent Ability to Ambulate 150 Feet: Independent Ambulation Assistive Devices: Cane, Eric Transfers Ability Ability to Transfer In/Out of Chair: Standby Assistance Exam Const: General: comfortable and no acute distress HENMT: General nose exam: Normal nares present Mouth: Yes moist mucous membranes Eyes: General: appearance normal, both eyes and all related structures Neck: Neck: supple and no JVD Resp: Effort & Inspection: normal respiratory effort Auscultation: clear to auscultation bilaterally Cardio: Rate: regular rate Rhythm: regular rhythm GI: GI Palp: Yes Soft to palpation Auscultation: normal bowel sounds Skin: General skin exam: normal color and no rashes or lesions noted Neuro: Other: patient's remains with normal mental status normal cranial examination and significantly improved right-sided hemiparesis to a point that is able to walk more than 200 feet with of course eric can reflexes remain relatively more lively on the right than the left Extrem: General: normal to inspection Psych: Mental Status: mental status grossly normal Objective Data Vital Signs Vital Signs: Vital Signs - 24 hr 01/06/20 14:00 01/06/20 21:07 01/07/20 06:00 Temperature 36.8 C 36.1 C L 36.2 C L Pulse Rate 76 65 69 Respiratory Rate 20 20 20 Blood Pressure 132/75 149/69 H 134/67 Pulse Oximetry 98 98 97 01/07/20 07:06 01/07/20 09:10 01/07/20 11:50 Temperature 36.5 C Pulse Rate 66 68 68 Respiratory Rate 20 20 Blood Pressure 120/61 Pulse Oximetry 99 Intake/Output Intake/Output: Intake & Output 01/04/20 01/05/20 01/06/2020 23:59 23:59 23:59 23:59 Intake Total 720 720 960 240 Balance 720 720 960 240 Meds/Results Medications: Active Medications Generic Name Dose Route Start Last Admin Trade Name Freq PRN Reason Stop Dose Admin Acetaminophen 650 mg 12/24/19 00:03 12/30/19 18:55 Tylenol Tablet PO 650 mg Q4H PRN Administration Pain Rated 1-3 Hydrocodone Bitart/Acetaminophen 1 tab 01/04/20 19:00 01/06/20 19:44 [place] 5-325 Mg PO 1 tab HS BRITTANY Administration Amlodipine Besylate 10 mg 12/24/19 09:00 01/07/20 09:10 Norvasc PO 10 mg DAILY BRITTANY Administration Aspirin 81 mg 12/24/19 09:00 01/07/20 09:10 Aspirin Ec PO 81 mg DAILY BRITTANY Administration Atorvastatin Calcium 40 mg 12/24/19 09:00 01/07/20 09:11 Lipitor PO 40 mg DAILY BRITTANY Administration Clopidogrel Bisulfate 75 mg 12/24/19 09:00 01/07/20 09:11 Plavix PO 75 mg DAILY BRITTANY Administration Dextrose 12.5 gm 12/25/19 17:16 Dextrose 50% Syringe IV PUSH PRN PRN Hypoglycemia Protocol Diphenoxylate HCl/Atropine 1 tablet 12/25/19 09:00 01/06/20 08:42 Lomotil Tab 2.5 Mg PO 1 tablet Q48H BRITTANY Administration Gabapentin 300 mg 12/24/19 00:03 01/05/20 20:10 Neurontin PO 300 mg BID PRN Administration Muscle Spasticity Gabapentin 300 mg 12/24/19 09:00 01/07/20 09:11 Neurontin PO 300 mg DAILY BRITTANY Administration Glimepiride 4 mg 12/24/19 09:00 01/07/20 09:11 Amaryl PO 01/23/20 09:01 4 mg QAM BRITTANY Administration Glucagon 1 mg 12/25/19 17:16 Glucagon For Inj IM PRN PRN
[2020-01-07 14:00] VITALS: BP 133/77; PULSE 75; RESP 20; TEMP 36.6; O2SAT 96
[2020-01-07 16:49] LABS: Glucose Point of Care 144 (65-105)
[2020-01-07 22:00] VITALS: BP 149/75; PULSE 66; RESP 19; TEMP 36.3; O2SAT 100
[2020-01-08 06:00] VITALS: BP 152/74; PULSE 72; RESP 18; TEMP 36.6; O2SAT 99
[2020-01-08 06:41] VITALS: O2SAT 97
[2020-01-08 06:57] LABS: Glucose Point of Care 164 (65-105)
[2020-01-08] MEDS: INSULIN HUMAN NPH (*BKC) 100 UNITS/ML 10 UNITS SUB-Q ×2 (09:05→17:14)
[2020-01-08] MEDS: AMLODIPINE BESYLATE 5 MG TABLET 10 MG PO (09:07)
[2020-01-08] MEDS: ASPIRIN 81 MG ENTERIC TABLET PO (09:07)
[2020-01-08] MEDS: CLOPIDOGREL BISULFATE 75 MG TABLET PO (09:07)
[2020-01-08] MEDS: CHOLECALCIFEROL 1,000 UNIT TABLET 2000 UNITS PO (09:07)
[2020-01-08] MEDS: ATORVASTATIN 40 MG TABLET PO (09:07)
[2020-01-08] MEDS: LOSARTAN POTASSIUM 100 MG TABLET PO (09:08)
[2020-01-08] MEDS: OPTI-GEN TAB 1 TABLET PO (09:08)
[2020-01-08] MEDS: GABAPENTIN 300 MG CAPSULE PO (09:08)
[2020-01-08] MEDS: hydroCHLOROthiazide 25 MG TABLET PO (09:08)
[2020-01-08] MEDS: GLIMEPIRIDE 2 MG TABLET 4 MG PO (09:08)
[2020-01-08 09:09] VITALS: PULSE 72
[2020-01-08] MEDS: METOPROLOL SUCCINATE EXT REL 50 MG TABCR PO (09:09)
[2020-01-08 12:11] LABS: Glucose Point of Care 118 (65-105)
[2020-01-08 14:00] VITALS: BP 153/88; PULSE 88; RESP 19; TEMP 36.3; O2SAT 95
--- NOTE | 2020-01-08 14:33 | WPDNEURORHBP ---
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 is doing fairly well denies any headache nausea vomiting chest pain shortness of breath fever chills or sore throat Review of Systems Review of Systems: All systems reviewed & are unremarkable except as noted in HPI and below Functional Status Ambulation Ability Ability to Ambulate 10 Feet: Independent Ability to Ambulate 50 Feet With 2 Turns: Independent Ability to Ambulate 150 Feet: Independent Ambulation Assistive Devices: Cane, Eric Transfers Ability Ability to Transfer In/Out of Chair: Standby Assistance Exam Const: General: comfortable and no acute distress HENMT: General nose exam: Normal nares present Mouth: Yes moist mucous membranes Eyes: General: appearance normal, both eyes and all related structures Neck: Neck: supple and no JVD Resp: Effort & Inspection: normal respiratory effort Auscultation: clear to auscultation bilaterally Cardio: Rate: regular rate Rhythm: regular rhythm GI: GI Palp: Yes Soft to palpation Auscultation: normal bowel sounds Skin: General skin exam: normal color and no rashes or lesions noted Neuro: Other: patient is awake alert with normal speech and language function normal cranial exam shunt and improving right-sided hemiparesis Extrem: General: normal to inspection Psych: Mental Status: mental status grossly normal Objective Data Vital Signs Vital Signs: Vital Signs - 24 hr 01/07/20 22:00 01/08/20 06:00 01/08/20 06:41 Temperature 36.3 C L 36.6 C Pulse Rate 66 72 Respiratory Rate 19 18 Blood Pressure 149/75 H 152/74 H Pulse Oximetry 100 99 97 01/08/20 09:09 Temperature Pulse Rate 72 Respiratory Rate Blood Pressure Pulse Oximetry Intake/Output Intake/Output: Intake & Output 01/05/20 01/06/20 01/07/20 01/08/20 23:59 23:59 23:59 23:59 Intake Total 720 960 760 600 Balance 720 960 760 600 Meds/Results Medications: Active Medications Generic Name Dose Route Start Last Admin Trade Name Freq PRN Reason Stop Dose Admin Acetaminophen 650 mg 12/24/19 00:03 12/30/19 18:55 Tylenol Tablet PO 650 mg Q4H PRN Administration Pain Rated 1-3 Hydrocodone Bitart/Acetaminophen 1 tab 01/04/20 19:00 01/07/20 19:58 [place] 5-325 Mg PO 1 tab HS BRITTANY Administration Amlodipine Besylate 10 mg 12/24/19 09:00 01/08/20 09:07 Norvasc PO 10 mg DAILY BRITTANY Administration Aspirin 81 mg 12/24/19 09:00 01/08/20 09:07 Aspirin Ec PO 81 mg DAILY BRITTANY Administration Atorvastatin Calcium 40 mg 12/24/19 09:00 01/08/20 09:07 Lipitor PO 40 mg DAILY BRITTANY Administration Clopidogrel Bisulfate 75 mg 12/24/19 09:00 01/08/20 09:07 Plavix PO 75 mg DAILY BRITTANY Administration Dextrose 12.5 gm 12/25/19 17:16 Dextrose 50% Syringe IV PUSH PRN PRN Hypoglycemia Protocol Diphenoxylate HCl/Atropine 1 tablet 12/25/19 09:00 01/08/20 09:16 Lomotil Tab 2.5 Mg PO 1 tablet Q48H BRITTANY Administration Gabapentin 300 mg 12/24/19 00:03 01/07/20 20:36 Neurontin PO 300 mg BID PRN Administration Muscle Spasticity Gabapentin 300 mg 12/24/19 09:00 01/08/20 09:08 Neurontin PO 300 mg DAILY BRITTANY Administration Glimepiride 4 mg 12/24/19 09:00 01/08/20 09:08 Amaryl PO 01/23/20 09:01 4 mg QAM BRITTANY Administration Glucagon 1 mg 12/25/19 17:16 Glucagon For Inj IM PRN PRN Hypoglycemia Protocol Glucose 15 gm 12/25/19 17:16 Glutose 15 PO PRN PRN Hypoglycemia Protocol Hydrochlorothiazide 25 mg 12/24/19 09:00 01/08/20 09:08 Hydrochlorothiazide PO 25 mg DAILY BRITTANY Administration Dextrose 1,000 mls @ 100 mls/hr 12/25/19 17:16 Dextrose 5% 1,000 Ml IVPB PRN PRN Hypoglycemia Protocol Insulin Human NPH 10 units 12/24/19 08:00 01/08/20 09:05 [id number]
[2020-01-08 17:09] LABS: Glucose Point of Care 286 (65-105)
[2020-01-08 17:09] LABS: Glucose Point of Care 246 (65-105)
[2020-01-08 22:00] VITALS: BP 134/75; PULSE 78; RESP 19; TEMP 36.6; O2SAT 97
[2020-01-09 06:00] VITALS: BP 154/86; PULSE 92; RESP 18; TEMP 37.1; O2SAT 98
[2020-01-09 07:02] LABS: Glucose Point of Care 161 (65-105)
[2020-01-09] MEDS: CHOLECALCIFEROL 1,000 UNIT TABLET 2000 UNITS PO (08:26)
[2020-01-09] MEDS: OPTI-GEN TAB 1 TABLET PO (08:26)
[2020-01-09] MEDS: LOSARTAN POTASSIUM 100 MG TABLET PO (08:26)
[2020-01-09] MEDS: AMLODIPINE BESYLATE 5 MG TABLET 10 MG PO (08:26)
[2020-01-09] MEDS: CLOPIDOGREL BISULFATE 75 MG TABLET PO (08:26)
[2020-01-09 08:27] VITALS: PULSE 92
[2020-01-09] MEDS: hydroCHLOROthiazide 25 MG TABLET PO (08:27)
[2020-01-09] MEDS: GABAPENTIN 300 MG CAPSULE PO (08:27)
[2020-01-09] MEDS: ASPIRIN 81 MG ENTERIC TABLET PO (08:27)
[2020-01-09] MEDS: METOPROLOL SUCCINATE EXT REL 50 MG TABCR PO (08:27)
[2020-01-09] MEDS: GLIMEPIRIDE 2 MG TABLET 4 MG PO (08:27)
[2020-01-09] MEDS: ATORVASTATIN 40 MG TABLET PO (08:27)
[2020-01-09] MEDS: INSULIN HUMAN NPH (*BKC) 100 UNITS/ML 10 UNITS SUB-Q ×2 (08:27→17:49)
--- NOTE | 2020-01-09 11:19 | WPDNEURORHBP ---
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 he has significantly improved and planning to be discharged tomorrow overall he made excellent progress denies any fever chills sore throat headache nausea vomiting sure shortness of breath Review of Systems Review of Systems: All systems reviewed & are unremarkable except as noted in HPI and below Functional Status Ambulation Ability Ability to Ambulate 10 Feet: Independent Ability to Ambulate 50 Feet With 2 Turns: Independent Ability to Ambulate 150 Feet: Independent Ambulation Assistive Devices: Cane, Eric Transfers Ability Ability to Transfer In/Out of Chair: Standby Assistance Exam Const: General: comfortable and no acute distress HENMT: General nose exam: Normal nares present Mouth: Yes moist mucous membranes Eyes: General: appearance normal, both eyes and all related structures Neck: Neck: supple and no JVD Resp: Effort & Inspection: normal respiratory effort Auscultation: clear to auscultation bilaterally Cardio: Rate: regular rate Rhythm: regular rhythm GI: GI Palp: Yes Soft to palpation Auscultation: normal bowel sounds Skin: General skin exam: normal color and no rashes or lesions noted Neuro: Other: patient is awake and alert has normal speech and language functions and right-sided hemiparesis has significantly improved Extrem: General: normal to inspection Psych: Mental Status: mental status grossly normal Objective Data Vital Signs Vital Signs: Vital Signs - 24 hr 01/08/20 14:00 01/08/20 22:00 01/09/20 06:00 Temperature 36.3 C L 36.6 C 37.1 C Pulse Rate 88 78 92 Respiratory Rate 19 19 18 Blood Pressure 153/88 H 134/75 154/86 H Pulse Oximetry 95 97 98 01/09/20 08:27 Temperature Pulse Rate 92 Respiratory Rate Blood Pressure Pulse Oximetry Intake/Output Intake/Output: Intake & Output 01/06/20 01/07/20 01/08/20 01/09/20 23:59 23:59 23:59 23:59 Intake Total 960 760 840 360 Balance 960 760 840 360 Meds/Results Medications: Active Medications Generic Name Dose Route Start Last Admin Trade Name Freq PRN Reason Stop Dose Admin Acetaminophen 650 mg 12/24/19 00:03 12/30/19 18:55 Tylenol Tablet PO 650 mg Q4H PRN Administration Pain Rated 1-3 Hydrocodone Bitart/Acetaminophen 1 tab 01/09/20 19:00 [place] 5-325 Mg PO Q24H [facility] Amlodipine Besylate 10 mg 12/24/19 09:00 01/09/20 08:26 Norvasc PO 10 mg DAILY BRITTANY Administration Aspirin 81 mg 12/24/19 09:00 01/09/20 08:27 Aspirin Ec PO 81 mg DAILY BRITTANY Administration Atorvastatin Calcium 40 mg 12/24/19 09:00 01/09/20 08:27 Lipitor PO 40 mg DAILY BRITTANY Administration Clopidogrel Bisulfate 75 mg 12/24/19 09:00 01/09/20 08:26 Plavix PO 75 mg DAILY BRITTANY Administration Dextrose 12.5 gm 12/25/19 17:16 Dextrose 50% Syringe IV PUSH PRN PRN Hypoglycemia Protocol Diphenoxylate HCl/Atropine 1 tablet 12/25/19 09:00 01/08/20 09:16 Lomotil Tab 2.5 Mg PO 1 tablet Q48H BRITTANY Administration Gabapentin 300 mg 12/24/19 00:03 01/07/20 20:36 Neurontin PO 300 mg BID PRN Administration Muscle Spasticity Gabapentin 300 mg 12/24/19 09:00 01/09/20 08:27 Neurontin PO 300 mg DAILY BRITTANY Administration Glimepiride 4 mg 12/24/19 09:00 01/09/20 08:27 Amaryl PO 01/23/20 09:01 4 mg QAM BRITTANY Administration Glucagon 1 mg 12/25/19 17:16 Glucagon For Inj IM PRN PRN Hypoglycemia Protocol Glucose 15 gm 12/25/19 17:16 Glutose 15 PO PRN PRN Hypoglycemia Protocol Hydrochlorothiazide 25 mg 12/24/19 09:00 01/09/20 08:27 Hydrochlorothiazide PO 25 mg DAILY BRITTANY Administration Dextrose 1,000 mls @ 100 mls/hr 12/25/19 17:16 Dextrose 5% 1,000 Ml IVPB PRN PRN Hypoglycemia Prot
[2020-01-09 11:53] LABS: Glucose Point of Care 153 (65-105)
[2020-01-09 14:00] VITALS: BP 156/79; PULSE 88; RESP 19; TEMP 36.7; O2SAT 100
[2020-01-09 17:01] LABS: Glucose Point of Care 124 (65-105)
[2020-01-09 22:00] VITALS: BP 154/75; PULSE 75; RESP 18; TEMP 36.1; O2SAT 97
[2020-01-10 06:00] VITALS: BP 155/75; PULSE 75; RESP 20; TEMP 36.2; O2SAT 99
[2020-01-10 07:00] LABS: Glucose Point of Care 140 (65-105)
[2020-01-10] MEDS: INSULIN HUMAN NPH (*BKC) 100 UNITS/ML 10 UNITS SUB-Q (08:38)
[2020-01-10] MEDS: ATORVASTATIN 40 MG TABLET PO (08:39)
[2020-01-10] MEDS: AMLODIPINE BESYLATE 5 MG TABLET 10 MG PO (08:39)
[2020-01-10] MEDS: ASPIRIN 81 MG ENTERIC TABLET PO (08:39)
[2020-01-10] MEDS: CHOLECALCIFEROL 1,000 UNIT TABLET 2000 UNITS PO (08:40)
[2020-01-10] MEDS: CLOPIDOGREL BISULFATE 75 MG TABLET PO (08:40)
[2020-01-10 08:42] VITALS: PULSE 75
[2020-01-10] MEDS: hydroCHLOROthiazide 25 MG TABLET PO (08:42)
[2020-01-10] MEDS: METOPROLOL SUCCINATE EXT REL 50 MG TABCR PO (08:42)
[2020-01-10] MEDS: GABAPENTIN 300 MG CAPSULE PO (08:42)
[2020-01-10] MEDS: LOSARTAN POTASSIUM 100 MG TABLET PO (08:42)
[2020-01-10] MEDS: GLIMEPIRIDE 2 MG TABLET 4 MG PO (08:42)
[2020-01-10] MEDS: OPTI-GEN TAB 1 TABLET PO (08:43)
--- NOTE | 2020-01-10 11:00 | WPDNEURORHBP ---
Subjective Date/time seen: 01/10/20 11:00 Interval history: this is a 64-year-old diabetic hypertensive male has completed his acute rehab of her having had brainstem stroke with significant right-sided hemiparesis his speech defect dysarthria has completely resolved he is walking quite a bit of a distance and achieved the goals denies any new symptoms particularly denies any headache nausea vomiting chest pain shortness of breath fever chills or sore throat Review of Systems Review of Systems: All systems reviewed & are unremarkable except as noted in HPI and below Functional Status Ambulation Ability Ability to Ambulate 10 Feet: Independent Ability to Ambulate 50 Feet With 2 Turns: Independent Ability to Ambulate 150 Feet: Independent Ambulation Assistive Devices: Cane, Eric Transfers Ability Ability to Transfer In/Out of Chair: Standby Assistance Exam Const: General: comfortable and no acute distress HENMT: General nose exam: Normal nares present Mouth: Yes moist mucous membranes Eyes: General: appearance normal, both eyes and all related structures Neck: Neck: supple and no JVD Resp: Effort & Inspection: normal respiratory effort Auscultation: clear to auscultation bilaterally Cardio: Rate: regular rate Rhythm: regular rhythm GI: GI Palp: Yes Soft to palpation Auscultation: normal bowel sounds Skin: General skin exam: normal color and no rashes or lesions noted Neuro: Other: patient remains awake and alert will oriented in time place person with normal speech and language function and significantly improved right-sided hemiparesis Extrem: General: normal to inspection Psych: Mental Status: mental status grossly normal Objective Data Vital Signs Vital Signs: Vital Signs - 24 hr 01/09/20 14:00 01/09/20 22:00 01/10/20 06:00 Temperature 36.7 C 36.1 C L 36.2 C L Pulse Rate 88 75 75 Respiratory Rate 19 18 20 Blood Pressure 156/79 H 154/75 H 155/75 H Pulse Oximetry 100 97 99 01/10/20 08:42 Temperature Pulse Rate 75 Respiratory Rate Blood Pressure Pulse Oximetry Intake/Output Intake/Output: Intake & Output 01/07/20 01/08/20 01/09/20 01/10/20 23:59 23:59 23:59 23:59 Intake Total 760 840 840 240 Balance 760 840 840 240 Meds/Results Medications: Active Medications Generic Name Dose Route Start Last Admin Trade Name Freq PRN Reason Stop Dose Admin Acetaminophen 650 mg 12/24/19 00:03 12/30/19 18:55 Tylenol Tablet PO 650 mg Q4H PRN Administration Pain Rated 1-3 Hydrocodone Bitart/Acetaminophen 1 tab 01/09/20 19:00 01/09/20 18:34 Methow 5-325 Mg PO 1 tab Q24H BRITTANY Administration Amlodipine Besylate 10 mg 12/24/19 09:00 01/10/20 08:39 Norvasc PO 10 mg DAILY BRITTANY Administration Aspirin 81 mg 12/24/19 09:00 01/10/20 08:39 Aspirin Ec PO 81 mg DAILY BRITTANY Administration Atorvastatin Calcium 40 mg 12/24/19 09:00 01/10/20 08:39 Lipitor PO 40 mg DAILY BRITTANY Administration Clopidogrel Bisulfate 75 mg 12/24/19 09:00 01/10/20 08:40 Plavix PO 75 mg DAILY BRITTANY Administration Dextrose 12.5 gm 12/25/19 17:16 Dextrose 50% Syringe IV PUSH PRN PRN Hypoglycemia Protocol Diphenoxylate HCl/Atropine 1 tablet 12/25/19 09:00 01/10/20 08:42 Lomotil Tab 2.5 Mg PO 1 tablet Q48H BRITTANY Administration Gabapentin 300 mg 12/24/19 00:03 01/07/20 20:36 Neurontin PO 300 mg BID PRN Administration Muscle Spasticity Gabapentin 300 mg 12/24/19 09:00 01/10/20 08:42 Neurontin PO 300 mg DAILY BRITTANY Administration Glimepiride 4 mg 12/24/19 09:00 01/10/20 08:42 Amaryl PO 01/23/20 09:01 4 mg QAM BRITTANY Administration Glucagon 1 mg 12/25/19 17:16 Glucagon For Inj IM PRN PRN Hypoglycemia Protocol Glucose 15 gm 12/25/19 17:16 Glutose 15 PO PRN PRN Hypoglycemia Protocol Hydrochlorothiazide 25 mg 12/24/19 09:00 01/10/20 08:42 Hydrochloroth
--- NOTE | 2020-01-10 11:58 | PCDIET ---
Nutrition Follow-Up Complete: Nutrition Diagnosis: Decreased saturated fat/sodium needs related to cardiovascular disease as evidenced by hx high cholesterol, HTN and recent CVA. Nutrition Goal: Patient to consume 75% of meals or greater. Goal met. Patient consuming 75-100% of meals on diabetic diet which is appropriate. Last recorded weight is 130 kg. Recommend weekly weights. Bowel Motility: +BM on 01/09/20. Labs Reviewed: Glu (140) Meds Noted: Lomotil, NPH Insulin, Ocuvite, Vitamin D, Hydrochlorothiazide, Amaryl Additional Notes: No documented skin breakdown. Noted plan for discharge today. If patient remains in house, will continue to monitor with same goals. Nutrition Monitoring and Evaluation: Follow up every 5 days.
[2020-01-10 12:35] LABS: Glucose Point of Care 170 (65-105)
--- NOTE | 2020-01-13 14:04 | DS_ITS ---
DATE OF DISCHARGE: 01/10/2020 DISCHARGE ACUTE REHABILITATION DIAGNOSIS: Stroke with the etiological diagnosis of left pontine infarct. DISCHARGE ACTIVE COMORBID CONDITIONS: 1. Diabetes mellitus. 2. GERD. 3. Hyperlipidemia. 4. Hypertension. 5. Ulnar entrapment of the right upper extremity. REASON FOR ADMISSION: A 64-year-old left-handed male with past medical history of GERD, hypertension, hyperlipidemia, type 2 diabetes mellitus, untreated sleep apnea, presented to [facility] on 12/19/2019, complaining of unsteady gait with right arm and right lower extremity tingling sensation and diaphoresis. He woke up around 4:30 am and was unable to walk straight in the car door and reported difficulty in speaking as well. Neurologists were consulted. The patient was on previously prescribed atorvastatin and aspirin from 81-325 mg daily, but later decided to decrease aspirin back to 81 mg daily along with the Plavix [address] scan of the head revealed no bleed. Carotid ultrasound revealed no high-grade stenosis. Echocardiogram was normal. MRI of the brain demonstrated acute left pontine infarct with the hypertensive urgency for which he was on oral antihypertensive medications. He required 2 L nasal cannula at night for obstructive sleep apnea, but unable to tolerate the CPAP mask due to claustrophobia. He continued to have the right-sided weakness with balance difficulties and gross motor control, passed the swallowing study, and was on regular consistency diet and thin liquids. He has not traveled outside the [place] or had no contact with someone who was ill or had traveled outside the [place] in the last 21 days. The patient himself had no personal contact with the person of travel to an area of the [place] that is experiencing transmission of the Coronavirus. The patient does not have a fever and no cough. LEVEL OF FUNCTION AT THE TIME OF ADMISSION: The patient required setup for the eating, supervision for oral hygiene. He refused toileting, partial assistance for bathing and partial assistance for upper body dressing. He required substantial assistance for lower body dressing, footwear; partial assistance for rolling in bed, sitting to lying, lying to sitting; substantial assist for the sit to stand, chair stand, chair transfer. He required partial assistance for toilet transfer, car transfer. He was dependent for walking 10 feet of 50 feet with 2 turns. He was unable to walk 150 feet, unable to walk 10 feet even, on uneven surfaces. He was unable to take curb or step, 4 steps, 12 steps, picking up object. He required supervision for the wheelchair for 50 feet even, and also 150 feet. ANTICIPATED REHAB GOALS: The anticipated rehab goals at the time of admission were to make him independent eating, oral hygiene; require only supervision for toileting, bathing; setup only for upper body dressing; supervision for lower body dressing, footwear; independent for rolling in bed, sit to lying, lying to sitting; supervision for sit to stand, chair transfer, toilet transfer; making independent car transfer, walking 10 feet, 50 feet with 2 turns, 150 feet, 10 feet on even surfaces; supervision for curb or step, 4 steps. He was unable to take 12 steps, supervision for picking up object, required to make him independent for the 50 feet and 150 feet of wheelchair. LEVEL OF FUNCTION AT THE TIME OF DISCHARGE: The patient became independent in eating, oral hygiene, toileting, bathing, upper body dressing, lower body dressing, footwear, rolling in bed, sit to lying, lying to sitting, sit to stand, chair transfer, toilet transfer, car transfer, 10 feet walking, 50 feet walking with 2 turns, and 150 feet walking as well as 10 feet walking on uneven surfaces. He also became independent picking up object, w
== END 2020-01-10 13:00 | disposition home health service (06) | DRG 57 ==
PROVIDERS: Admitting Provider Psychiatry & Neurology Neurology; PCP Family Medicine; Visit Provider Psychiatry & Neurology Neurology
DX: I69.353 Hemiplegia and hemiparesis following cerebral infarction affecting right non-dominant side (principal); I69.322 Dysarthria following cerebral infarction; I69.392 Facial weakness following cerebral infarction; E78.5 Hyperlipidemia, unspecified; E55.9 Vitamin D deficiency, unspecified; E11.42 Type 2 diabetes mellitus with diabetic polyneuropathy; G47.33 Obstructive sleep apnea (adult) (pediatric); I16.0 Hypertensive urgency; I10 Essential (primary) hypertension; K21.9 Gastro-esophageal reflux disease without esophagitis; R53.82 Chronic fatigue, unspecified; Z87.891 Personal history of nicotine dependence; Z79.4 Long term (current) use of insulin; Z79.82 Long term (current) use of aspirin
CPT/HCPCS: 36415; 80048; 80061; 83036; 85025; 92507; 92523; 92610; 97110; 97112; 97116; 97162; 97166; 97530; 97535; 97542; A9270; J1815

== ENCOUNTER 2020-09-29 11:16 | Outpatient (CLI) | payer BC, SELFPAY ==
[2020-09-29 17:03] LABS: Basophils Absolute Auto 0.1 K/mm3 (0.0-0.1); Basophils Percent Auto 0.5 % (0.2-1.2); Eosinophils Absolute Auto 0.2 K/mm3 (0-0.3); Eosinophils Percent Auto 2.4 % (0-4.4); Hematocrit 49.7 % (42.0-52.0); Hemoglobin 16.5 g/dL (14.0-18.0); Immature Granulocyte Absolute 0.03 K/mm3 (0.00-0.031); Immature Granulocyte Percent A 0.3 % (0-0.5); Lymphocytes Absolute Auto 1.81 K/mm3 (0.9-3.2); Lymphocytes Percent Auto 18.7 % (18.3-44.2); Mean Corpuscular HGB Conc 33.2 g/dl (32-36); Mean Corpuscular Hemoglobin 29.8 pg (26-34); Mean Corpuscular Volume 89.9 fl (80-100); Mean Platelet Volume 10.5 fl (7.4-10.4); Monocytes Absolute Auto 0.5 K/mm3 (0.1-0.6); Monocytes Percent Auto 5.4 % (2.6-8.5); Neutrophils Percent Auto 72.7 % (45.5-73.1); Platelet Count Result 228 k/mm3 (150-375); Red Blood Count 5.53 M/mm3 (4.6-6.20); Red Cell Distribution Width 13.7 % (11.5-14.5); White Blood Count 9.7 K/mm3 (4.5-10.0)
[2020-09-29 17:17] LABS: Add Urine Microscopic? YES; Appearance Urine Clear (Clear); Bilirubin Urine Negative (Negative); Blood Urine Negative (Negative); Calcium Oxalate Crystals Urine Present /hpf; Color Urine Yellow (Yellow); Glucose Urine UA 2+ mg/dL (Negative); Ketones Urine Negative (Negative); Leukocyte Esterase Ur Negative LEU/UL (Negative); Mucus Urine Rare /lpf; Nitrate Urine Negative (Negative); Protein Urine 2+ mg/dL (Negative); Specific Grav Ur 1.028 (1.001-1.035); Urobilinogen Urine Negative mg/dL (<2.0); WBC Urine 0-3 /hpf
[2020-09-29 17:22] LABS: Hemoglobin A1C 7.7 % (<5.7)
[2020-09-29 17:24] LABS: Alanine Aminotransferase 35 U/L (4-50); Albumin Level 4.1 g/dL (3.5-5.1); Alkaline Phosphatase 103 U/L (38-126); Anion Gap 8 mmol/L (8-16); Aspartate Amino Transferase 24 U/L (17-59); Bilirubin,Total 0.7 mg/dL (0.2-1.3); Blood Urea Nitrogen 20 mg/dL (9-20); CRP 0.8 mg/dL (<1.0); Calcium 9.3 mg/dL (8.4-10.2); Carbon Dioxide 27 mmol/L (22-30); Chloride 104 mmol/L (98-107); Cholesterol 149 mg/dL (0-200); Estimated Glomerular Filt Rate > 60; Glucose 277 mg/dL (75-110); HDL Direct 40 mg/dL; Potassium 4.2 mmol/L (3.4-5.0); Sodium 139 mmol/L (137-145); Triglycerides 118 mg/dL (<150)
[2020-09-29 17:33] LABS: LDL Cholesterol Direct 92 mg/dL
[2020-09-29 17:38] LABS: Vitamin D 25 Hydroxy 44.7 ng/mL
[2020-09-29 17:49] LABS: Creatinine Urine 254.2 mg/dL
[2020-09-29 18:08] LABS: MALB Creatinine Ratio 98.9 mg/g (0-30); Microalbumin Urine Random 251.4 mg/L (0-16.7)
[2020-09-29 18:17] LABS: Prostate Specific Antigen 0.8 ng/mL (< OR = 4.0)
[2020-09-29 18:52] LABS: Folic Acid 15.9 ng/mL (2.76->20)
[2020-10-03 14:54] LABS: C-Peptide 2.24 ng/mL (0.80-3.85)
== END 2020-09-29 11:17 | disposition home or self-care (01) ==
LOC: ANHBWCLAB 11:19
PROVIDERS: PCP Family Medicine; Visit Provider Family Medicine
DX: E11.9 Type 2 diabetes mellitus without complications (principal); E78.5 Hyperlipidemia, unspecified; G47.33 Obstructive sleep apnea (adult) (pediatric); M16.11 Unilateral primary osteoarthritis, right hip; R60.9 Edema, unspecified; R79.89 Other specified abnormal findings of blood chemistry; Z86.73 Personal history of transient ischemic attack (TIA), and cerebral infarction without residual deficits; Z79.4 Long term (current) use of insulin; Z12.5 Encounter for screening for malignant neoplasm of prostate
CPT/HCPCS: 36415; 80053; 80061; 81001; 82043; 82306; 82607; 82746; 83036; 84153; 84443; 84681; 85025; 86140; G0103

== ENCOUNTER 2020-10-13 09:07 | Outpatient (CLI) | payer BC, SELFPAY ==
[2020-10-13 19:48] LABS: Alanine Aminotransferase 29 U/L (4-50); Alkaline Phosphatase 104 U/L (38-126); Anion Gap 9 mmol/L (8-16); Aspartate Amino Transferase 21 U/L (17-59); Bilirubin,Total 0.7 mg/dL (0.2-1.3); Blood Urea Nitrogen 17 mg/dL (9-20); Calcium 9.2 mg/dL (8.4-10.2); Carbon Dioxide 27 mmol/L (22-30); Chloride 105 mmol/L (98-107); Cholesterol 142 mg/dL (0-200); Estimated Glomerular Filt Rate > 60; Glucose 190 mg/dL (75-110); HDL Direct 37 mg/dL; Hemoglobin A1C 8.5 % (<5.7); Potassium 4.1 mmol/L (3.4-5.0); Sodium 141 mmol/L (137-145); Triglycerides 150 mg/dL (<150)
[2020-10-13 19:59] LABS: LDL Cholesterol Direct 81 mg/dL
[2020-10-13 20:05] LABS: Free T4 Free Thyroxine 0.99 ng/mL (0.78-2.19)
[2020-10-13 20:40] LABS: Creatinine Urine 250.9 mg/dL
[2020-10-13 21:02] LABS: MALB Creatinine Ratio 79.9 mg/g (0-30); Microalbumin Urine Random 200.5 mg/L (0-16.7)
== END 2020-10-13 09:08 | disposition home or self-care (01) ==
PROVIDERS: PCP Family Medicine; Visit Provider Internal Medicine Endocrinology, Diabetes & Metabolism
DX: E11.65 Type 2 diabetes mellitus with hyperglycemia (principal); E78.5 Hyperlipidemia, unspecified
CPT/HCPCS: 36415; 80053; 80061; 82043; 83036; 84439; 84443

== ENCOUNTER 2020-12-15 09:08 | Outpatient (CLI) | payer BC, SELFPAY ==
[2020-12-15 18:13] LABS: Basophils Percent Auto 0.3 % (0.2-1.2); Eosinophils Absolute Auto 0.4 K/mm3 (0-0.3); Hematocrit 41.8 % (42.0-52.0); Immature Granulocyte Absolute 0.02 K/mm3 (0.00-0.031); Immature Granulocyte Percent A 0.2 % (0-0.5); Lymphocytes Absolute Auto 1.69 K/mm3 (0.9-3.2); Lymphocytes Percent Auto 15.3 % (18.3-44.2); Mean Corpuscular HGB Conc 33.5 g/dl (32-36); Mean Corpuscular Volume 89.5 fl (80-100); Monocytes Absolute Auto 0.5 K/mm3 (0.1-0.6); Monocytes Percent Auto 4.9 % (2.6-8.5); Neutrophils Absolute Auto 8.3 K/mm3 (1.3-6.7); Neutrophils Percent Auto 75.3 % (45.5-73.1); Platelet Count Result 272 k/mm3 (150-375); Red Blood Count 4.67 M/mm3 (4.6-6.20); Red Cell Distribution Width 14.3 % (11.5-14.5)
[2020-12-15 18:18] LABS: Alanine Aminotransferase 22 U/L (4-50); Albumin Level 3.7 g/dL (3.5-5.1); Alkaline Phosphatase 119 U/L (38-126); Anion Gap 7 mmol/L (8-16); Aspartate Amino Transferase 18 U/L (17-59); Bilirubin,Total 0.6 mg/dL (0.2-1.3); Blood Urea Nitrogen 20 mg/dL (9-20); Calcium 8.8 mg/dL (8.4-10.2); Carbon Dioxide 29 mmol/L (22-30); Chloride 105 mmol/L (98-107); Estimated Glomerular Filt Rate > 60; Glucose 143 mg/dL (75-110); Potassium 3.7 mmol/L (3.4-5.0); Sodium 141 mmol/L (137-145)
[2020-12-15 18:20] LABS: Add Urine Microscopic? YES; Appearance Urine Cloudy (Clear); Bilirubin Urine Negative (Negative); Color Urine Amber (Yellow); Glucose Urine UA 1+ mg/dL (Negative); Ketones Urine Negative (Negative); Leukocyte Esterase Ur Negative LEU/UL (Negative); Mucus Urine Heavy /lpf; Nitrate Urine Negative (Negative); Protein Urine 2+ mg/dL (Negative); RBC Urine >75 /hpf (0-2); Squamous Epithelial Cell Urine Rare /hpf (Few); Urobilinogen Urine Negative mg/dL (<2.0)
[2020-12-15 18:22] LABS: CRP 1.1 mg/dL (<1.0); Cholesterol 120 mg/dL (0-200); HDL Direct 35 mg/dL; Triglycerides 109 mg/dL (<150)
[2020-12-15 18:23] LABS: Blood Urine Negative (Negative)
[2020-12-15 18:28] LABS: Hemoglobin A1C 8.1 % (<5.7)
[2020-12-15 18:29] LABS: LDL Cholesterol Direct 67 mg/dL
[2020-12-15 18:35] LABS: Free T4 Free Thyroxine 1.07 ng/mL (0.78-2.19); Vitamin D 25 Hydroxy 36.9 ng/mL
[2020-12-15 18:49] LABS: Prostate Specific Antigen 0.9 ng/mL (< OR = 4.0)
[2020-12-15 18:57] LABS: Microalbumin Urine Random 97.5 mg/L (0-16.7)
[2020-12-16 08:01] LABS: Creatinine Urine 467.8 mg/dL; MALB Creatinine Ratio 20.8 mg/g (0-30)
[2020-12-18 06:47] LABS: C-Peptide 2.49 ng/mL (0.80-3.85); Triiodothyronine T3 Free 3.2 pg/mL (2.3-4.2)
[2020-12-18 10:10] LABS: T3 Reverse 10 ng/dL (8-25)
[2020-12-19 11:30] LABS: Testosterone Free 40.8 pg/mL (35.0-155.0); Testosterone Total 199 ng/dL (250-1100)
== END 2020-12-15 09:09 | disposition home or self-care (01) ==
LOC: ANHBWCLAB 09:11
PROVIDERS: PCP Family Medicine; Referring Provider Internal Medicine Endocrinology, Diabetes & Metabolism; Visit Provider Family Medicine
DX: Z12.5 Encounter for screening for malignant neoplasm of prostate (principal); M16.11 Unilateral primary osteoarthritis, right hip; I10 Essential (primary) hypertension; N52.9 Male erectile dysfunction, unspecified; E55.9 Vitamin D deficiency, unspecified; R60.9 Edema, unspecified; I63.9 Cerebral infarction, unspecified; E78.5 Hyperlipidemia, unspecified; R53.82 Chronic fatigue, unspecified; R79.89 Other specified abnormal findings of blood chemistry; E11.42 Type 2 diabetes mellitus with diabetic polyneuropathy; Z51.81 Encounter for therapeutic drug level monitoring; Z79.899 Other long term (current) drug therapy; Z79.4 Long term (current) use of insulin; G47.33 Obstructive sleep apnea (adult) (pediatric); Z86.73 Personal history of transient ischemic attack (TIA), and cerebral infarction without residual deficits
CPT/HCPCS: 36415; 80053; 80061; 81001; 82043; 82088; 82306; 82607; 82746; 83036; 84153; 84244; 84402; 84403; 84439; 84443; 84481; 84482; 84681; 85025; 86140; 87086; G0103

== ENCOUNTER 2020-12-17 15:10 | Outpatient (CLI) | payer BC, SELFPAY ==
[2020-12-24 13:29] LABS: PRA 0.64 ng/mL/h (0.25-5.82)
== END 2020-12-17 15:11 | disposition home or self-care (01) ==
PROVIDERS: PCP Family Medicine; Visit Provider Internal Medicine Endocrinology, Diabetes & Metabolism
DX: I10 Essential (primary) hypertension (principal)
CPT/HCPCS: 36415; 82088; 84244

== ENCOUNTER 2021-01-15 10:35 | Outpatient (CLI) | payer BC, SELFPAY ==
[2021-01-15 17:40] LABS: Add Urine Microscopic? YES; Appearance Urine Turbid (Clear); Bacteria Urine Trace /hpf; Bilirubin Urine Negative (Negative); Blood Urine Negative (Negative); Color Urine Amber (Yellow); Glucose Urine UA 1+ mg/dL (Negative); Ketones Urine Negative (Negative); Leukocyte Esterase Ur Negative LEU/UL (NEGATIVE); Mucus Urine Heavy /lpf; Nitrate Urine Negative (Negative); Protein Urine 2+ mg/dL (Negative); Specific Grav Ur 1.024 (1.001-1.035); Squamous Epithelial Cell Urine Rare /hpf (Few); WBC Urine 0-3 /hpf (0-3)
== END 2021-01-15 10:36 | disposition home or self-care (01) ==
LOC: ANHBWCLAB 10:37
PROVIDERS: PCP Family Medicine; Visit Provider Family Medicine
DX: R31.29 Other microscopic hematuria (principal)
CPT/HCPCS: 81001; 87086

== ENCOUNTER 2021-01-21 09:15 | Outpatient (CLI) | payer BC, SELFPAY ==
[2021-01-21 19:58] LABS: Alanine Aminotransferase 36 U/L (4-50); Albumin Level 3.9 g/dL (3.5-5.1); Alkaline Phosphatase 120 U/L (38-126); Anion Gap 7 mmol/L (8-16); Aspartate Amino Transferase 27 U/L (17-59); Bilirubin,Total 0.5 mg/dL (0.2-1.3); Blood Urea Nitrogen 24 mg/dL (9-20); Calcium 8.6 mg/dL (8.4-10.2); Carbon Dioxide 26 mmol/L (22-30); Chloride 107 mmol/L (98-107); Estimated Glomerular Filt Rate > 60; Glucose 211 mg/dL (75-110); Potassium 4.3 mmol/L (3.4-5.0); Sodium 140 mmol/L (137-145)
[2021-01-21 19:59] LABS: Creatinine Urine 254.1 mg/dL
[2021-01-21 20:03] LABS: MALB Creatinine Ratio 23.5 mg/g (0-30); Microalbumin Urine Random 59.6 mg/L (0-16.7)
[2021-01-21 21:53] LABS: Hemoglobin A1C 8.8 % (<5.7)
== END 2021-01-21 09:16 | disposition home or self-care (01) ==
LOC: ANHBWCLAB 09:17
PROVIDERS: PCP Family Medicine; Visit Provider Internal Medicine Endocrinology, Diabetes & Metabolism
DX: E11.65 Type 2 diabetes mellitus with hyperglycemia (principal)
CPT/HCPCS: 36415; 80053; 82043; 83036

== ENCOUNTER 2021-02-10 07:56 | Outpatient (CLI) | payer BC, SELFPAY ==
[2021-02-10 19:41] LABS: Cortisol Random 1.23 ug/dL
== END 2021-02-10 07:57 | disposition home or self-care (01) ==
LOC: ANHBWCLAB 07:56
PROVIDERS: PCP Family Medicine; Visit Provider Nurse Practitioner Family
DX: E11.65 Type 2 diabetes mellitus with hyperglycemia (principal)
CPT/HCPCS: 36415; 82533

== ENCOUNTER 2021-04-23 10:51 | Outpatient (CLI) | payer BC, SELFPAY ==
[2021-04-23 17:55] LABS: Alanine Aminotransferase 24 U/L (4-50); Albumin Level 3.8 g/dL (3.5-5.1); Alkaline Phosphatase 110 U/L (38-126); Anion Gap 9 mmol/L (8-16); Aspartate Amino Transferase 20 U/L (17-59); Bilirubin,Total 0.6 mg/dL (0.2-1.3); Blood Urea Nitrogen 22 mg/dL (9-20); Calcium 8.9 mg/dL (8.4-10.2); Carbon Dioxide 26 mmol/L (22-30); Chloride 105 mmol/L (98-107); Cholesterol 150 mg/dL (0-200); Estimated Glomerular Filt Rate > 60; Glucose 249 mg/dL (65-110); HDL Direct 34 mg/dL; Potassium 3.9 mmol/L (3.4-5.0); Sodium 140 mmol/L (137-145); Triglycerides 245 mg/dL (<150)
[2021-04-23 18:02] LABS: Hemoglobin A1C 9.2 % (<5.7)
[2021-04-23 18:05] LABS: LDL Cholesterol Direct 73 mg/dL
[2021-04-23 18:07] LABS: Creatinine Urine 223.7 mg/dL
[2021-04-23 18:11] LABS: Free T4 Free Thyroxine 0.82 ng/mL (0.78-2.19)
[2021-04-23 18:12] LABS: MALB Creatinine Ratio 32.7 mg/g (0-30); Microalbumin Urine Random 73.2 mg/L (0-16.7)
== END 2021-04-23 10:52 | disposition home or self-care (01) ==
PROVIDERS: PCP Family Medicine; Visit Provider Internal Medicine Endocrinology, Diabetes & Metabolism
DX: E11.65 Type 2 diabetes mellitus with hyperglycemia (principal); E78.5 Hyperlipidemia, unspecified
CPT/HCPCS: 36415; 80053; 80061; 82043; 83036; 84439; 84443

== ENCOUNTER 2021-06-15 09:21 | Outpatient (RCR) | payer BC, SELFPAY ==
[2021-07-01 11:06] VITALS: BMI 41.0
== END 2021-08-30 10:46 | disposition home or self-care (01) ==
LOC: ANHDMC 09:21
PROVIDERS: PCP Family Medicine; Visit Provider Internal Medicine Endocrinology, Diabetes & Metabolism
DX: E11.65 Type 2 diabetes mellitus with hyperglycemia (principal); Z71.3 Dietary counseling and surveillance
CPT/HCPCS: 97804

== ENCOUNTER 2021-07-12 10:34 | Outpatient (CLI) | payer BC, SELFPAY ==
--- NOTE | ~2021-07-12 | US_ITS ---
EXAMINATION: US carotid duplex BI DATE: 07/12/2021 11:17 INDICATION: Transient cerebral ischemic attack TECHNIQUE: Grayscale, color Doppler, and pulsed Doppler images of the cervical carotid arteries were obtained. The degree of vessel stenosis is placed in one of the following categories: normal, <50%, 5 0-69%, >=70% but less than near-occlusion, near-occlusion, or total occlusion. Note that percent sten osis relative to normal distal artery lumen diameter is indirectly measured from velocity measurement s as described by Foster, et al. Radiology 2003; 229:340-346. Notes: Normal: Peak systolic velocity <125 centimeters/sec and no plaque <50%. Peak systolic velocity <125 ( EDV <40; ICA/CCA PSV ratio <2.0; used these factors only a tandem lesions or low cardiac output or co ntralateral disease) 50-69 %: PSV 125-230 (EDV 40-100; ratio 2-4) >= 70% but less than near occlusion: PSV greater than 230 (EDV > 100; ratio> 4.0) Near Occlusion: PSV that is variable; markedly narrowed lumen Occlusion: Absent flow on color/spectral Doppler and no lumen on beltran scale. COMPARISON: None. FINDINGS: RIGHT: The right common carotid artery (CCA) peak systolic velocity (PSV) is 75 cm/s. The right internal car otid artery (ICA) PSV is 96 cm/s. The right ICA end-diastolic velocity (EDV) is 33 cm/s. The right IC A/CCA PSV ratio is 1.3. The external carotid artery (ECA) PSV is 170 cm/s. There is antegrade flow in the right vertebral artery. LEFT: The left CCA PSV is 90 cm/s. The left ICA PSV is 78 cm/s. The left ICA EDV is 33 cm/s. The left ICA/C CA PSV ratio is 0.9. The ECA PSV is 139 cm/s. There is antegrade flow in the left vertebral artery. IMPRESSION: 1. Less than 50% stenosis in the right internal carotid artery by sonographic criteria. 2. Less than 50% stenosis in the left internal carotid artery by sonographic criteria. Reviewed, dictated and finalized at location B. IMPRESSION: 1. Less than 50% stenosis in the right internal carotid artery by sonographic c lucy. 2. Less than 50% stenosis in the left internal carotid artery by sonographic cr lenard.
== END 2021-07-12 10:35 | disposition home or self-care (01) ==
LOC: ANHIMG 10:37
PROVIDERS: PCP Family Medicine; Visit Provider Psychiatry & Neurology Neurology
DX: I65.23 Occlusion and stenosis of bilateral carotid arteries (principal)
CPT/HCPCS: 93880

== ENCOUNTER 2021-08-24 14:02 | Outpatient (CLI) | payer BC, SELFPAY ==
[2021-08-24 19:27] LABS: Hemoglobin A1C 7.3 % (<5.7)
== END 2021-08-24 14:03 | disposition home or self-care (01) ==
LOC: ANHBWCLAB 14:04
PROVIDERS: PCP Family Medicine; Visit Provider Family Medicine
DX: E11.42 Type 2 diabetes mellitus with diabetic polyneuropathy (principal)
CPT/HCPCS: 36415; 83036

== ENCOUNTER 2021-08-26 13:24 | Outpatient (CLI) | payer BC, SELFPAY ==
--- NOTE | ~2021-08-26 | CT_ITS ---
EXAMINATION: CT abdomen pelvis wo/w con DATE: 08/26/2021 14:24 INDICATION: Microscopic hematuria. TECHNIQUE: Computed tomography (CT) of the abdomen and pelvis was performed without and with intraven ous contrast using a total of 130 mL Omnipaque-350 intravenous contrast with a double-bolus technique for simultaneous opacification of the renal parenchyma and renal collecting system. Automated exposu re control and iterative reconstruction technique were employed. The dose-length product was 3064.39 mGy-cm. COMPARISON: None FINDINGS: The visualized portions of the lung bases demonstrate mild atelectasis. There is a 5 mm nodule in rig ht middle lobe, likely benign. No pleural effusion. The heart size is normal. No pericardial effusion . A 2.5 cm low-attenuation lesion in left hepatic lobe may be a cyst or focal steatosis. The gallblad mohini, spleen, pancreas, adrenal glands, and right kidney are normal. There is a 7 mm cyst in left kidn ey. There is no urolithiasis. The ureters are well opacified and are normal. There is diffuse bladder wall thickening. The prostate is mildly enlarged. There are no dilated loops of bowel. The appendix is not visualized. There are changes of umbilical hernia repair. There are no pathologically enlarged lymph nodes. There is no free intraperitoneal fluid. There is a total right hip arthroplasty. There is mild thoracolumbar spondylosis. IMPRESSION: 1. Diffuse bladder wall thickening, which may be secondary to chronic outlet obstruction from the mil dly enlarged prostate. Reviewed, dictated and finalized at location A. OB IMPRESSION: 1. Diffuse bladder wall thickening, which may be secondary to chronic outlet ob struction from the mildly enlarged prostate.
[2021-08-26 14:05] LABS: Estimated Glomerular Filt Rate > 60
== END 2021-08-26 13:25 | disposition home or self-care (01) ==
LOC: ANHIMG 13:27
PROVIDERS: PCP Family Medicine; Visit Provider Urology
DX: R31.29 Other microscopic hematuria (principal); M47.815 Spondylosis without myelopathy or radiculopathy, thoracolumbar region; N40.0 Benign prostatic hyperplasia without lower urinary tract symptoms; K76.9 Liver disease, unspecified; N28.1 Cyst of kidney, acquired
CPT/HCPCS: 74178; Q9967

== ENCOUNTER 2021-09-14 15:27 | Outpatient (RCR) | payer BC, SELFPAY | END 2021-11-29 14:01 | disposition home or self-care (01) | LOC: ANHDMC 15:27 | PROVIDERS: PCP Family Medicine; Visit Provider Internal Medicine Endocrinology, Diabetes & Metabolism | DX: E11.65 Type 2 diabetes mellitus with hyperglycemia (principal); Z71.89 Other specified counseling | CPT/HCPCS: G0108 ==

== ENCOUNTER 2021-12-17 13:49 | Outpatient (CLI) | payer BC, SELFPAY ==
[2021-12-17 18:47] LABS: Hemoglobin A1C 8.2 % (<5.7)
[2021-12-17 18:58] LABS: MALB Creatinine Ratio 23.3 mg/g (0-30); Microalbumin Urine Random 55.8 mg/L (0-16.7)
== END 2021-12-17 13:50 | disposition home or self-care (01) ==
LOC: ANHBWCLAB 13:49
PROVIDERS: PCP Family Medicine; Visit Provider Family Medicine
DX: E11.9 Type 2 diabetes mellitus without complications (principal)
CPT/HCPCS: 36415; 82043; 83036

== ENCOUNTER 2022-01-25 07:33 | Outpatient (RCR) | payer BC, SELFPAY ==
[2022-01-04 14:05] VITALS: BMI 39.6
--- NOTE | 2022-02-08 13:42 | PCWOUND ---
WOCN NOTE patient did not show up for appointment or call.
== END 2022-03-22 09:19 | disposition home or self-care (01) ==
LOC: ANHWOC 07:33
PROVIDERS: PCP Family Medicine; Visit Provider Family Medicine
DX: L97.909 Non-pressure chronic ulcer of unspecified part of unspecified lower leg with unspecified severity (principal)
CPT/HCPCS: 99212; 99214; A9270; G0463

== ENCOUNTER 2022-01-27 11:20 | Outpatient (CLI) | payer BC, SELFPAY ==
[2022-01-27 21:07] LABS: Anion Gap 7 mmol/L (8-16); Blood Urea Nitrogen 28 mg/dL (9-20); Calcium 8.8 mg/dL (8.4-10.2); Carbon Dioxide 29 mmol/L (22-30); Chloride 105 mmol/L (98-107); Estimated Glomerular Filt Rate > 60; Glucose 161 mg/dL (65-110); Potassium 3.9 mmol/L (3.4-5.0); Sodium 141 mmol/L (137-145)
== END 2022-01-27 11:21 | disposition home or self-care (01) ==
LOC: ANHBWCLAB 11:22
PROVIDERS: PCP Family Medicine; Visit Provider Family Medicine
DX: R60.0 Localized edema (principal)
CPT/HCPCS: 36415; 80048

== ENCOUNTER 2022-05-05 13:21 | Outpatient (CLI) | payer OTHER, SELFPAY ==
[2022-05-05 19:24] LABS: Hemoglobin A1C 8.4 % (<5.7)
[2022-05-05 20:23] LABS: Basophils Absolute Auto 0.1 K/mm3 (0.0-0.1); Basophils Percent Auto 0.6 % (0.2-1.2); Eosinophils Absolute Auto 0.2 K/mm3 (0-0.3); Eosinophils Percent Auto 2.6 % (0-4.4); Hematocrit 44.3 % (42.0-52.0); Hemoglobin 14.1 g/dL (14.0-18.0); Immature Granulocyte Absolute 0.03 K/mm3 (0.00-0.031); Immature Granulocyte Percent A 0.3 % (0-0.5); Lymphocytes Absolute Auto 1.86 K/mm3 (0.9-3.2); Mean Corpuscular HGB Conc 31.8 g/dl (32-36); Mean Corpuscular Hemoglobin 28.6 pg (26-34); Mean Corpuscular Volume 89.9 fl (80-100); Mean Platelet Volume 10.4 fl (7.4-10.4); Monocytes Absolute Auto 0.4 K/mm3 (0.1-0.6); Neutrophils Absolute Auto 6.3 K/mm3 (1.3-6.7); Neutrophils Percent Auto 70.5 % (45.5-73.1); Platelet Count Result 261 k/mm3 (150-375); Red Blood Count 4.93 M/mm3 (4.6-6.20); Red Cell Distribution Width 13.9 % (11.5-14.5); White Blood Count 8.9 K/mm3 (4.5-10.0)
== END 2022-05-05 13:22 | disposition home or self-care (01) ==
PROVIDERS: PCP Family Medicine; Visit Provider Family Medicine
DX: E11.9 Type 2 diabetes mellitus without complications (principal)
CPT/HCPCS: 36415; 83036; 85025

== ENCOUNTER 2022-08-29 14:58 | Outpatient (CLI) | payer OTHER, SELFPAY ==
[2022-08-29 20:51] LABS: Creatinine Urine 44.6 mg/dL
[2022-08-29 20:55] LABS: MALB Creatinine Ratio 19.7 mg/g (0-30); Microalbumin Urine Random 8.8 mg/L (0-16.7)
[2022-08-29 21:27] LABS: Hemoglobin A1C 9.6 % (<5.7)
== END 2022-08-29 14:59 | disposition home or self-care (01) ==
PROVIDERS: PCP Family Medicine; Visit Provider Family Medicine
DX: E11.9 Type 2 diabetes mellitus without complications (principal); Z12.5 Encounter for screening for malignant neoplasm of prostate
CPT/HCPCS: 36415; 82043; 83036; 84153; G0103

== ENCOUNTER 2022-12-01 10:43 | Outpatient (CLI) | payer OTHER, SELFPAY ==
[2022-12-01 20:12] LABS: Alanine Aminotransferase 24 U/L (6-50); Albumin Level 4.4 g/dL (3.5-5.1); Alkaline Phosphatase 118 U/L (38-126); Anion Gap 7 mmol/L (8-16); Aspartate Amino Transferase 57 U/L (17-59); Bilirubin,Total 0.6 mg/dL (0.2-1.3); Blood Urea Nitrogen 24 mg/dL (9-20); Calcium 8.7 mg/dL (8.4-10.2); Carbon Dioxide 27 mmol/L (22-30); Chloride 107 mmol/L (98-107); Cholesterol 175 mg/dL (0-200); Estimated Glomerular Filt Rate > 60; Glucose 234 mg/dL (65-110); HDL Direct 34 mg/dL; Potassium 3.8 mmol/L (3.4-5.0); Sodium 141 mmol/L (137-145); Triglycerides 143 mg/dL (<150)
[2022-12-01 20:23] LABS: LDL Cholesterol Direct 95 mg/dL
[2022-12-01 21:23] LABS: Creatinine Urine 77.6 mg/dL
[2022-12-01 21:26] LABS: MALB Creatinine Ratio 31.3 mg/g (0-30); Microalbumin Urine Random 24.3 mg/L (0-16.7)
[2022-12-01 22:56] LABS: Hemoglobin A1C 8.9 % (<5.7)
== END 2022-12-01 10:44 | disposition home or self-care (01) ==
PROVIDERS: PCP Family Medicine; Visit Provider Family Medicine
DX: E11.9 Type 2 diabetes mellitus without complications (principal)
CPT/HCPCS: 36415; 80053; 80061; 82043; 83036

== ENCOUNTER 2023-01-18 14:32 | Outpatient (CLI) | payer OTHER, SELFPAY ==
--- NOTE | ~2023-01-18 | XR_ITS ---
EXAM: XR hand LT min 3V DATE: 01/18/2023 14:52 HISTORY: left thumb cmc and mcp pain . COMPARISON: None available. FINDINGS: Normal mineralization. No fracture or dislocation. No lytic or blastic lesion. Mild joint space narrowing in the interphalangeal joints of the fingers and thumb, first CMC joint, radiocarpal joint and triscaphe joint. Narrowing and osteophytosis at the trapeziometacarpal joint. Degenerative subchondral cyst in the lateral aspect of the lunate, without significant ulnar variance. No erosion or periosteal change. Soft tissues within normal limits. IMPRESSION: Polyarticular osteoarthritis of the left hand, moderate at the trapeziometacarpal joint. Reviewed, dictated and finalized at location K. IMPRESSION: Polyarticular osteoarthritis of the left hand, moderate at the trap eziometacarpal joint.
== END 2023-01-18 14:33 | disposition home or self-care (01) ==
LOC: ANHBWCIMG 14:33
PROVIDERS: PCP Family Medicine; Visit Provider Nurse Practitioner
DX: M15.9 Polyosteoarthritis, unspecified (principal); M79.645 Pain in left finger(s)
CPT/HCPCS: 73130

== ENCOUNTER 2023-03-06 14:39 | Outpatient (CLI) | payer OTHER, SELFPAY ==
[2023-03-06 19:03] LABS: Hematocrit 43.4 % (42.0-52.0); Hemoglobin 14.5 g/dL (14.0-18.0); Mean Corpuscular HGB Conc 33.4 g/dl (32-36); Mean Corpuscular Volume 89.7 fl (80-100); Mean Platelet Volume 10.7 fl (7.4-10.4); Platelet Count Result 265 k/mm3 (150-375); Red Blood Count 4.84 M/mm3 (4.6-6.20); Red Cell Distribution Width 14.2 % (11.5-14.5); White Blood Count 12.1 K/mm3 (4.5-10.0)
[2023-03-06 20:34] LABS: Creatinine Urine 46.7 mg/dL
[2023-03-06 20:46] LABS: MALB Creatinine Ratio < 12.8 mg/g (0-30); Microalbumin Urine Random < 6.0 mg/L (0-16.7)
[2023-03-06 21:16] LABS: Hemoglobin A1C 8.1 % (<5.7)
== END 2023-03-06 14:40 | disposition home or self-care (01) ==
PROVIDERS: PCP Family Medicine; Visit Provider Family Medicine
DX: M79.645 Pain in left finger(s) (principal); R53.1 Weakness; R60.0 Localized edema; G45.9 Transient cerebral ischemic attack, unspecified; E11.42 Type 2 diabetes mellitus with diabetic polyneuropathy
CPT/HCPCS: 36415; 82043; 83036; 85027

== ENCOUNTER 2023-07-17 13:53 | Outpatient (CLI) | payer OTHER, SELFPAY ==
[2023-07-17 20:17] LABS: Creatinine Urine 75.1 mg/dL
[2023-07-17 21:07] LABS: Alanine Aminotransferase 22 U/L (6-50); Albumin Level 4.4 g/dL (3.5-5.1); Alkaline Phosphatase 91 U/L (38-126); Anion Gap 7 mmol/L (8-16); Aspartate Amino Transferase 71 U/L (17-59); Bilirubin,Total 0.7 mg/dL (0.2-1.3); Blood Urea Nitrogen 25 mg/dL (9-20); Carbon Dioxide 28 mmol/L (22-30); Chloride 102 mmol/L (98-107); Estimated Glomerular Filt Rate > 60; Glucose 271 mg/dL (65-110); Potassium 3.4 mmol/L (3.4-5.0); Sodium 137 mmol/L (137-145)
[2023-07-17 21:24] LABS: MALB Creatinine Ratio < 8.0 mg/g (0-30); Microalbumin Urine Random < 6.0 mg/L (0-16.7)
[2023-07-17 23:36] LABS: Hemoglobin A1C 7.6 % (<5.7)
== END 2023-07-17 13:54 | disposition home or self-care (01) ==
PROVIDERS: PCP Family Medicine; Visit Provider Family Medicine
DX: E11.9 Type 2 diabetes mellitus without complications (principal)
CPT/HCPCS: 36415; 80053; 82043; 83036

== ENCOUNTER 2023-09-13 16:24 | Outpatient (CLI) | payer OTHER, SELFPAY ==
--- NOTE | ~2023-09-13 | MR_ITS ---
EXAMINATION: MR shoulder RT wo con DATE: 09/13/2023 18:10 INDICATION: Chronic right shoulder pain. TECHNIQUE: Magnetic resonance imaging (MRI) of the right shoulder was performed without intravenous c ontrast. Sequences included axial PD-weighted FS FSE, coronal oblique PD-weighted FS FSE and T2-weigh mau FS FSE, and sagittal oblique T2-weighted FS FSE and T1-weighted FSE. COMPARISON: None. FINDINGS: Coracoacromial arch: The acromion undersurface is flat in morphology (type I). There is severe acromioclavicular joint ost eoarthritis. There is mild subacromial/subdeltoid bursitis. Rotator cuff: There is severe supraspinatus tendinopathy and moderate infraspinatus tendinopathy. Teres minor tendo n is normal. There is mild subscapularis tendinopathy. No tear. There is no asymmetric fatty atrophy of the rotator cuff muscle bellies. Biceps tendon and glenoid labrum: There is a complete tear of proximal biceps tendon with scarred tendon in the bicipital groove. There is a degenerative tear of posterior superior labrum. Fluid: There is no glenohumeral joint effusion. Bones/cartilage: There is shallow partial-thickness cartilage loss of glenoid and humeral head. IMPRESSION: 1. Severe rotator cuff tendinopathy. No tear. 2. Mild glenohumeral joint chondrosis. 3. Complete tear of proximal biceps tendon. 4. Severe acromioclavicular joint osteoarthritis. 5. Mild subacromial/subdeltoid bursitis. Reviewed, dictated and finalized at location E. ATOLOGY SALES REPRESENTATIVE
== END 2023-09-13 16:25 | disposition home or self-care (01) ==
PROVIDERS: PCP Family Medicine
DX: M75.121 Complete rotator cuff tear or rupture of right shoulder, not specified as traumatic (principal); S46.211A Strain of muscle, fascia and tendon of other parts of biceps, right arm, initial encounter; M67.813 Other specified disorders of tendon, right shoulder; M94.211 Chondromalacia, right shoulder; M19.011 Primary osteoarthritis, right shoulder; M75.51 Bursitis of right shoulder; G89.29 Other chronic pain
CPT/HCPCS: 73221

== ENCOUNTER 2023-09-26 12:47 | Emergency (ER) | payer OTHER, SELFPAY ==
[2023-09-26 13:01] VITALS: BP 147/69; PULSE 72; RESP 20; TEMP 37.1; O2SAT 95
--- NOTE | 2023-09-26 13:37 | ED.URI ---
HPI - URI/Sore Throat General Chief Complaint: Upper Respiratory Infection Stated Complaint: Congestion Time Seen by Provider: 09/26/23 13:25 Source: patient, RN notes reviewed and old records reviewed Mode of arrival: ambulatory Limitations: no limitations History of Present Illness HPI Narrative: 68 year old male presents to [facility] care with complaints of one week duration of head and chest congestion with shortness of breath and noted wheezing at times. Patient reports that he called his doctors office and couldn't get in to see them and was told that since he was patient in [place] he couldn't be seen in [place] office, patient very upset about not having access to his physician states he may have to find new physician though he really likes his doctor. Patient reports that he has not had any fevers, chills or body aches, reports intermittent cough. Patient reports that he has been taking NyQuil for his symptoms. MD elicited complaint: cough, rhinorrhea, nasal congestion and other (some shortness of breath) Onset (ago): week(s) (1) Severity: moderate Description of mucous: clear and yellow Treatments prior to arrival: other (NyQuil) Related Data Home Medications Medication Instructions Recorded Confirmed aspirin 81 mg tablet,delayed 81 mg PO DAILY 08/13/19 01/27/22 release (Adult Low Dose Aspirin) cholecalciferol (vitamin D3) 25 2,000 unit PO DAILY 08/13/19 01/27/22 mcg (1,000 unit) capsule krill oil 500 mg capsule 500 mg PO DAILY 07/08/20 01/27/22 [id number] acid-vit 1 tablet PO DAILY 01/04/22 01/27/22 K-lycop 400 mcg-20 mcg-370 mcg tablet (One-A-Day Men's 50 Plus (with vitamin K)) vitamin B complex (B 1 tablet PO DAILY 01/04/22 01/27/22 Complex-Vitamin B12 tablet) aspirin 81 mg tablet,delayed 81 mg PO DAILY 09/26/23 09/26/23 release atenolol 25 mg tablet 25 mg PO DAILY 09/26/23 09/26/23 atorvastatin 40 mg tablet 40 mg PO DAILY 09/26/23 09/26/23 cholecalciferol (vitamin D3) 50 50 mcg PO DAILY 09/26/23 09/26/23 mcg (2,000 unit) capsule (Vitamin D3) clopidogrel 75 mg tablet 75 mg PO DAILY 09/26/23 09/26/23 diazepam 5 mg tablet 5 mg PO BID PRN Anxiety 09/26/23 09/26/23 gabapentin 300 mg capsule 300 mg PO TID 09/26/23 09/26/23 hydrochlorothiazide 25 mg tablet 25 mg PO DAILY 09/26/23 09/26/23 insulin aspart See Rx Instructions .Route .COMPLEX 09/26/23 09/26/23 (niacinamide)(U-100) 100 unit/mL (3 mL) subcu cartridge (Fiasp Penfill U-100 Insulin) insulin glargine U-300 conc 300 50 unit subcut DAILY 09/26/23 09/26/23 unit/mL (3 mL) subcutaneous pen (Toujeo Max U-300 SoloStar) krill oil 500 mg capsule 500 mg PO DAILY 09/26/23 09/26/23 lisinopril 40 mg tablet 40 mg PO DAILY 09/26/23 09/26/23 losartan 100 mg tablet 100 mg PO DAILY 09/26/23 09/26/23 rabeprazole 20 mg tablet,delayed 20 mg PO DAILY 09/26/23 09/26/23 release tadalafil 5 mg tablet 5 mg PO DAILY 09/26/23 09/26/23 topiramate 25 mg tablet 25 mg PO DAILY 09/26/23 09/26/23 vitamin B complex (B 1 tablet PO DAILY 09/26/23 09/26/23 Complex-Vitamin B12 tablet) Allergies Allergy/AdvReac Type Severity Reaction Status Date / Time acetaminophen [From Tylenol] Allergy Unknown Itching Verified 09/27/23 13:24 naproxen Allergy Unknown Unknown Verified 09/27/23 13:24 Penicillins Allergy Unknown Unknown Verified 09/27/23 13:24 gadobenic acid Allergy Rash Verified 09/27/23 13:24 [From contrast - MRI] dye Allergy Unknown Unknown Uncoded 09/27/23 13:24 metformin AdvReac Severe Hives Uncoded 09/27/23 13:24 Review of Systems Review of Systems: CONSTITUTIONAL: Denies malaise, chills, sweats, or fever. EYES: Denies visual changes, redness, or discharge. ENT: Reports rhinorrhea, congestion, sinus pain,no otalgia and no sore throat. CARDIOVASCULAR: Denies chest pain, palpitations, or edema. RESPIRATORY: Reports cough.? Reports some dyspnea. GASTROINTESTINAL: Denies abdominal pain, nausea, vomiting, diarrhea SKIN
== END 2023-09-26 13:50 | disposition home or self-care (01) ==
PROVIDERS: Emergency Provider Registered Nurse; PCP Family Medicine
DX: J06.9 Acute upper respiratory infection, unspecified (principal); Z79.899 Other long term (current) drug therapy; Z79.82 Long term (current) use of aspirin; Z79.4 Long term (current) use of insulin; E11.9 Type 2 diabetes mellitus without complications; Z86.73 Personal history of transient ischemic attack (TIA), and cerebral infarction without residual deficits; Z85.828 Personal history of other malignant neoplasm of skin; Z87.891 Personal history of nicotine dependence
CPT/HCPCS: 99213; G0463

== ENCOUNTER 2023-10-23 14:02 | Outpatient (CLI) | payer OTHER, SELFPAY ==
[2023-10-23 18:57] LABS: Alanine Aminotransferase 26 U/L (6-50); Albumin Level 4.1 g/dL (3.5-5.1); Alkaline Phosphatase 92 U/L (38-126); Anion Gap 7 mmol/L (8-16); Aspartate Amino Transferase 55 U/L (17-59); Bilirubin,Total 0.6 mg/dL (0.2-1.3); Blood Urea Nitrogen 22 mg/dL (9-20); Calcium 8.8 mg/dL (8.4-10.2); Carbon Dioxide 29 mmol/L (22-30); Chloride 102 mmol/L (98-107); Estimated Glomerular Filt Rate > 60; Glucose 297 mg/dL (65-110); Potassium 3.7 mmol/L (3.4-5.0); Sodium 138 mmol/L (137-145)
[2023-10-23 19:15] LABS: Prostate Specific Antigen 1.5 ng/mL (< OR = 4.0)
[2023-10-23 19:22] LABS: Creatinine Urine 93.9 mg/dL
[2023-10-23 19:25] LABS: MALB Creatinine Ratio 24.2 mg/g (0-30); Microalbumin Urine Random 22.7 mg/L (0-16.7)
[2023-10-23 19:28] LABS: Hematocrit 44.5 % (42.0-52.0); Hemoglobin 14.5 g/dL (14.0-18.0); Mean Corpuscular HGB Conc 32.6 g/dl (32-36); Mean Corpuscular Hemoglobin 29.4 pg (26-34); Mean Corpuscular Volume 90.3 fl (80-100); Mean Platelet Volume 10.5 fl (7.4-10.4); Platelet Count Result 252 k/mm3 (150-375); Red Blood Count 4.93 M/mm3 (4.6-6.20); Red Cell Distribution Width 13.8 % (11.5-14.5); White Blood Count 9.6 K/mm3 (4.5-10.0)
[2023-10-23 21:31] LABS: Hemoglobin A1C 8.1 % (<5.7)
== END 2023-10-23 14:03 | disposition home or self-care (01) ==
LOC: ANHBWCLAB 14:03
PROVIDERS: PCP Family Medicine; Visit Provider Family Medicine
DX: E11.9 Type 2 diabetes mellitus without complications (principal); E55.9 Vitamin D deficiency, unspecified; R31.29 Other microscopic hematuria; Z12.5 Encounter for screening for malignant neoplasm of prostate
CPT/HCPCS: 36415; 80053; 82043; 83036; 84153; 85027; G0103

== ENCOUNTER 2023-11-06 14:56 | Outpatient (CLI) | payer OTHER, SELFPAY ==
--- NOTE | ~2023-11-06 | XR_ITS ---
Supine and upright views of the abdomen Clinical history: Abdominal pain Findings: Bowel gas pattern is nonspecific. No evidence for obstruction or free air. No abnormal mass lesion or calcification is seen. Right hip arthroplasty present. There is mild degenerative change o f the left hip joint. Impression: No significant abnormality is seen. Reviewed, dictated and finalized at [facility]. ROAD ACCOUNTANT Impression: No significant abnormality is seen.
[2023-11-06 19:09] LABS: Hematocrit 44.7 % (42.0-52.0); Hemoglobin 14.1 g/dL (14.0-18.0); Mean Corpuscular HGB Conc 31.5 g/dl (32-36); Mean Platelet Volume 10.5 fl (7.4-10.4); Platelet Count Result 308 k/mm3 (150-375); Red Blood Count 4.86 M/mm3 (4.6-6.20); Red Cell Distribution Width 13.7 % (11.5-14.5); White Blood Count 13.8 K/mm3 (4.5-10.0)
[2023-11-06 21:22] LABS: Alanine Aminotransferase 18 U/L (6-50); Albumin Level 4.1 g/dL (3.5-5.1); Alkaline Phosphatase 97 U/L (38-126); Anion Gap 7 mmol/L (8-16); Aspartate Amino Transferase 66 U/L (17-59); Bilirubin,Total 0.7 mg/dL (0.2-1.3); Blood Urea Nitrogen 41 mg/dL (9-20); Calcium 8.5 mg/dL (8.4-10.2); Carbon Dioxide 30 mmol/L (22-30); Chloride 104 mmol/L (98-107); Estimated Glomerular Filt Rate 38; Glucose 128 mg/dL (65-110); Lipase 42 U/L (23-300); Potassium 3.1 mmol/L (3.4-5.0); Sodium 141 mmol/L (137-145)
== END 2023-11-06 14:57 | disposition home or self-care (01) ==
PROVIDERS: PCP Family Medicine; Visit Provider Family Medicine
DX: E11.9 Type 2 diabetes mellitus without complications (principal); R11.10 Vomiting, unspecified; R11.2 Nausea with vomiting, unspecified; R19.7 Diarrhea, unspecified; R10.9 Unspecified abdominal pain
CPT/HCPCS: 36415; 74019; 80053; 83690; 85027

== ENCOUNTER 2023-11-14 10:27 | Outpatient (CLI) | payer OTHER, SELFPAY ==
[2023-11-21 22:10] LABS: Rotavirus Stool Not Detected
== END 2023-11-14 10:28 | disposition home or self-care (01) ==
PROVIDERS: PCP Family Medicine; Visit Provider Family Medicine
DX: R11.10 Vomiting, unspecified (principal); R19.7 Diarrhea, unspecified; E11.9 Type 2 diabetes mellitus without complications; R11.2 Nausea with vomiting, unspecified; R10.9 Unspecified abdominal pain
CPT/HCPCS: 87045; 87425; 87427; 87449

== ENCOUNTER 2024-01-29 16:28 | Outpatient (CLI) | payer OTHER, SELFPAY ==
[2024-01-29 20:08] LABS: Anion Gap 4 mmol/L (4-12); Blood Urea Nitrogen 19 mg/dL (9-20); Carbon Dioxide 33 mmol/L (22-30); Chloride 101 mmol/L (98-107); Estimated Glomerular Filt Rate > 60; Glucose 113 mg/dL (65-110); Potassium 3.8 mmol/L (3.4-5.0); Sodium 138 mmol/L (137-145)
[2024-01-29 21:51] LABS: Hemoglobin A1C 6.8 % (<5.7)
== END 2024-01-29 16:29 | disposition home or self-care (01) ==
LOC: ANHBWCLAB 16:29
PROVIDERS: PCP Family Medicine; Visit Provider Family Medicine
DX: N17.9 Acute kidney failure, unspecified (principal); Z79.4 Long term (current) use of insulin
CPT/HCPCS: 36415; 80048; 83036

== ENCOUNTER 2024-03-23 10:34 | Emergency (ER) | payer OTHER, SELFPAY ==
[2024-03-23 10:43] VITALS: BP 148/68; PULSE 82; RESP 16; TEMP 36.4; O2SAT 98
--- NOTE | 2024-03-23 11:05 | ED.GENADULT ---
HPI - General Adult General Chief complaint: Skin/Abscess/Foreign Body Stated complaint: Right foot needs bandaged Source: patient Mode of arrival: ambulatory Limitations: no limitations History of Present Illness HPI narrative: Patient presents requesting a dressing change to the right foot. He indicates he saw podiatry 2 days ago and they placed a dressing at that time. He is unaware of any recent injury. He actually states he does not know much whatsoever as to the specifics pertaining to the area. He denies any pain in the area of concern, noting that he has decreased sensation 2/2 peripheral neuropathy. No fever, chills, nausea, vomiting or drainage from the area. His current BS is 136. He has a history of stoke with residual weakness on the right side. He lives alone and states that he cannot bend forward to change the dressing. He has a grabber that he uses to perform other ADL's. Related Data Home Medications Medication Instructions Recorded Confirmed [id number] acid-vit 1 tablet PO DAILY 01/04/22 03/23/24 K-lycop 400 mcg-20 mcg-370 mcg tablet (One-A-Day Men's 50 Plus (with vitamin K)) aspirin 81 mg tablet,delayed 81 mg PO DAILY 09/26/23 03/23/24 release atenolol 25 mg tablet 25 mg PO DAILY 09/26/23 03/23/24 cholecalciferol (vitamin D3) 50 50 mcg PO DAILY 09/26/23 03/23/24 mcg (2,000 unit) capsule (Vitamin D3) insulin aspart See Rx Instructions .Route .COMPLEX 09/26/23 03/19/24 (niacinamide)(U-100) 100 unit/mL (3 mL) subcu cartridge (Fiasp Penfill U-100 Insulin) insulin glargine U-300 conc 300 50 unit subcut DAILY 09/26/23 03/19/24 unit/mL (3 mL) subcutaneous pen (Toujeo Max U-300 SoloStar) krill oil 500 mg capsule 500 mg PO DAILY 09/26/23 03/23/24 rabeprazole 20 mg tablet,delayed 20 mg PO DAILY 09/26/23 03/23/24 release topiramate 25 mg tablet 25 mg PO DAILY 09/26/23 03/23/24 vitamin B complex (B 1 tablet PO DAILY 09/26/23 03/23/24 Complex-Vitamin B12 tablet) gabapentin 300 mg capsule 300 mg PO DAILY 01/29/24 03/23/24 hydrochlorothiazide 50 mg tablet 50 mg PO DAILY 03/23/24 03/23/24 Allergies Allergy/AdvReac Type Severity Reaction Status Date / Time acetaminophen [From Tylenol] Allergy Unknown Itching Verified 03/19/24 12:15 naproxen Allergy Unknown Unknown Verified 03/19/24 12:15 Penicillins Allergy Unknown Unknown Verified 03/19/24 12:15 gadobenic acid Allergy Rash Verified 03/19/24 12:15 [From contrast - MRI] dye Allergy Unknown Unknown Uncoded 03/19/24 12:15 metformin AdvReac Severe Hives Uncoded 03/19/24 12:15 Review of Systems Review of Systems: CONSTITUTIONAL: Denies fever, chills, or sweats. EYES: Denies visual changes, redness, or discharge. ENT: Denies rhinorrhea, congestion, sore throat, or otalgia. CARDIOVASCULAR: Denies chest pain, palpitations, or edema. RESPIRATORY: Denies cough or dyspnea. GASTROINTESTINAL: Denies abdominal pain, nausea, vomiting, or diarrhea. GENITOURINARY: Denies dysuria or hematuria. SKIN: Reports a wound to the right heel. Denies rash or itching. MUSCULOSKELETAL: Denies back pain, joint pain, or myalgia. NEUROLOGIC: Reports chronic numbness and tingling in BLE, unchanged from baseline. Denies headache, dizziness, or weakness. PSYCHIATRIC: Denies anxiety or depression. [facility] Past Medical History Medical History Acute CVA (cerebrovascular accident) (~12/19/19) Appendicitis (~1975) Diabetes Hx of blood clots (~1990) Obesity due to excess calories Skin cancer (~1999) Ulnar nerve entrapment at right elbow (~2004) Umbilical hernia (~2007) Surgical History Surgical History H/O arthroscopy of left knee (~1990) H/O bursectomy (~2016) H/O removal of cyst (~1974) History of carpal tunnel surgery (~1999) History of total hip replacement Hx of tonsillectomy (~1964) Status post subacromial decomp
== END 2024-03-23 11:07 | disposition home or self-care (01) ==
PROVIDERS: Emergency Provider Nurse Practitioner; PCP Family Medicine
DX: Z48.00 Encounter for change or removal of nonsurgical wound dressing (principal); Z87.891 Personal history of nicotine dependence; I69.351 Hemiplegia and hemiparesis following cerebral infarction affecting right dominant side; E66.9 Obesity, unspecified; Z68.38 Body mass index [BMI] 38.0-38.9, adult; Z85.828 Personal history of other malignant neoplasm of skin; E11.42 Type 2 diabetes mellitus with diabetic polyneuropathy; Z86.2 Personal history of diseases of the blood and blood-forming organs and certain disorders involving the immune mechanism; Z79.82 Long term (current) use of aspirin; Z79.4 Long term (current) use of insulin
CPT/HCPCS: 99212; G0463